=== PATIENT | female | born 1990 | race Two or more races ===

== ENCOUNTER 2016-04-28 20:14 | Emergency (ER) | payer SELFPAY ==
--- NOTE | 2016-04-28 20:41 | PDOC ---
Rapid Medical Evaluation Chief Complaint: Pain Time Seen by Provider: 04/28/16 20:35 Medical Evaluation: Allergies Allergy/AdvReac Type Severity Reaction Status Date / Time No Known Allergies Allergy Verified 05/28/14 10:41 04/28/16 20:38 25 yo F c/o vaginal rash but tx with ? med by medical assistant ob gyn [email or web address] ago. Finished course then had menses( finished x1 week ago). NOw, c/o burn upon urination, freq/ urgency without fever/chills LMP: x1 week ago
[2016-04-28 20:42] VITALS: BP 127/84; PULSE 110; TEMP 98.2; BMI 26.9
[2016-04-28 21:29] LABS: URINE APPEARANCE CLEAR; URINE BILIRUBIN NEGATIVE (NEGATIVE); URINE BLOOD NEGATIVE (NEGATIVE); URINE COLOR LTYELLOW; URINE GLUCOSE (UA) NEGATIVE (NEGATIVE); URINE KETONE NEGATIVE (NEGATIVE); URINE NITRITE NEGATIVE (NEGATIVE); URINE PROTEIN NEGATIVE (NEGATIVE); URINE UROBILINOGEN NEGATIVE E.U./dl (0.2-1.0)
[2016-04-28 21:37] LABS: URINE LEUK ESTERASE 3+ (NEGATIVE)
[2016-04-28 22:20] LABS: URINE HYALINE CAST 1 /lpf; URINE MUCUS RARE; URINE RBC 6 /hpf (0-3); URINE WBC 29 /hpf (3-5)
[2016-04-28] MEDS ORDERED: AZITHROMYCIN 1 GM PACKET PO ONE (22:29)
--- NOTE | 2016-04-28 22:30 | PDOC ---
History of Present Illness - General Chief Complaint: Pain Stated Complaint: PAIN Time Seen by Provider: 04/28/16 20:35 History Source: Patient Exam Limitations: No Limitations - History of Present Illness Initial Comments: 04/28/16 22:30 CHIEF COMPLAINT: Vaginal discharge HISTORY OF PRESENT ILLNESS: This is a 25 year old female with a reported history of frequent "vaginal infections", recently completed a course of "pills " for an unknown problem prescribed by a evp general counsel whose name she cannot remember. She reports one week of copius vaginal discharge and itching, as well as burning on urination. She denies fevers/chills, pelvic pain, and nausea/ vomiting. Vital signs on arrival are notable for P 110. REVIEW OF SYSTEMS: GENERAL/CONSTITUTIONAL: No fever or chills. No weakness. No weight change. HEAD, EYES, EARS, NOSE AND THROAT: No change in vision. No ear pain or discharge. No sore throat. CARDIOVASCULAR: No chest pain or palpitations. RESPIRATORY: No cough, wheezing, or shortness of breath. GASTROINTESTINAL: No nausea, vomiting, diarrhea or constipation. GENITOURINARY: See HPI. MUSCULOSKELETAL: No joint or muscle swelling or pain. No neck or back pain. SKIN: No rash or easy bruising. NEUROLOGIC: No headache, vertigo, loss of consciousness, or loss of sensation. PSYCHIATRIC: No depression or anxiety. ENDOCRINE: No increased thirst. No abnormal weight change. HEMATOLOGIC/LYMPHATIC: No anemia, easy bleeding, or history of blood clots. ALLERGIC/IMMUNOLOGIC: No hives or skin allergy. No latex allergy. PHYSICAL EXAM: GENERAL: The patient is awake, alert, and fully oriented, in no acute distress. ENT: Pupils equal, round and reactive to light, extraocular movements intact, sclera anicteric, conjunctiva clear. Neck supple. LUNGS: Clear to auscultation bilaterally. Normal excursion. No respiratory distress or use of accessory muscles. CV: RRR, S1/S2, no MRG. Cap refill < 2 sec. ABDOMEN: Soft, non-distended, non-tender. EXTREMITIES: Normal range of motion, no edema. NEUROLOGICAL: Normal speech, normal gait. CN II-XII grossly intact. PSYCH: Normal mood, normal affect. SKIN: Warm, dry, normal turgor, no rashes or lesions noted. PELVIC: Normal external exam. Thick, yellow, vaginal discharge. +CMT and bilateral adnexal tenderness. Past History - Past Medical History Allergies/Adverse Reactions: Allergies Allergy/AdvReac Type Severity Reaction Status Date / Time No Known Allergies Allergy Verified 05/28/14 10:41 Home Medications: Ambulatory Orders Levofloxacin [Levaquin -] 500 mg PO DAILY #10 tablet 05/28/14 Prednisone [Deltasone -] 20 mg PO DAILY #18 tablet 05/28/14 Cephalexin [Keflex] 500 mg PO Q6H #20 capsule 04/28/16 Anemia: Yes Asthma: No Cancer: No Cardiac Disorders: No CVA: No COPD: No CHF: No Dementia: No Diabetes: No GI Disorders: No Disorders: No HTN: No Hypercholesterolemia: No Liver Disease: No Seizures: No Thyroid Disease: No - Immunization History Immunization Up to Date: Yes - Psycho/Social/Smoking Cessation Hx Anxiety: No Suicidal Ideation: No Smoking History: Never smoked Have you smoked in the past 12 months: No Hx Alcohol Use: Yes (OCCASIONALLY) Drug/Substance Use Hx: No Substance Use Type: Alcohol *Physical Exam - Vital Signs Last Vital Signs Temp Pulse Resp BP Pulse Ox 98.2 F 110 H 18 127/84 100 04/28/16 20:38 04/28/16 20:38 04/28/16 20:38 04/28/16 20:38 04/28/16 20:38 ED Treatment Course - ADDITIONAL ORDERS Additional order review: Laboratory Results 04/28/16 21:15 Urine Color Ltyellow Urine Appearance Clear Urine pH 6.0 Ur Specific [place] 1.024 Urine Protein Negative Urine Glucose (UA) Negative Urine Ketones Negative Urine Blood Negative Urine Nitrite Negative Urine Bilirubin Negative Urine Urobilinogen Negative Ur Leukocyte Esterase 3+ H D Urine RBC 6 Urine WBC 29 Ur Epithelial Cells Rare Hyaline Casts 1 Urine Mucus Rare Urine HCG, Qual Negative Medical Decision Making - Medical Decision Making 04/28/16 22:59 A/P: 25 year old female with vaginal discharge, CMT, and bilateral adnexal tenderness suspicious for PID. No fevers or systemic symptoms; well-appearing. -Ceftriaxone 250mg IM x 1, Azithromycin 1g PO -Cultures sent -UA with 29 WBCs; will also treat with Keflex for UTI -Stem Lead Former followup advised -Return precautions reviewed Repeat HR is 89. 04/28/16 23:14 *DC/Admit/Observation/Transfer Diagnosis at time of Disposition: PID (acute pelvic inflammatory disease) - Discharge Dispostion Disposition: HOME Condition at time of disposition: Stable Admit: No - Prescriptions Prescriptions: Cephalexin [Keflex] 500 mg PO Q6H #20 capsule - Referrals Referrals: Jayy Amador MD [Primary Care Provider] - - Patient Instructions Printed Discharge Instructions: DI for Pelvic Inflammatory Disease Additional Instructions: -You are being treated for vaginal infection with a one-time dose of antibiotics -Please also continue antibiotics as prescribed for urinary tract infection -You can call the enclosed number for your culture results in 2-3 days -Please follow up with our [facility] at [address] [place] [address] ([phone]) in 2-3 days -Return here for fever (temperature over 100.4), worsening pelvic pain, or any other concerning symptoms Print Language: FRENCH
[2016-04-28] MEDS ORDERED: IBUPROFEN 600 MG TABLET (FP) PO ONE ×2 (22:31→22:42)
[2016-04-28] MEDS ORDERED: AZITHROMYCIN 1 GM PACKET ONE (22:31)
[2016-04-28] MEDS ORDERED: LIDOCAINE HCL/PF 1% SDV 5ML VIAL ONE (22:32)
[2016-04-28] MEDS ORDERED: LIDOCAINE HCL 1%, 10 MG/ML (20ML VIAL) ONE (22:33)
--- NOTE | 2016-05-02 17:46 | PDOC ---
Patient Follow-up (Call Back) - Post ED Follow - Up Condition at time of discharge: Stable Disposition at time of original discharge: HOME Reason for Call Back: Abnwl. Microbiology Signs/Symptoms Improved: Yes - Disposition Additional Instructions/Notes: pt' s genital culture + for gardinella vaginosis pt. 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
== END 2016-04-28 23:08 | disposition home or self-care (01) ==
LOC: JERFT 20:14
DX: N73.8 Other specified female pelvic inflammatory diseases (principal)
CPT/HCPCS: 36415; 81003; 81015; 84703; 87070; 87086; 87186; 87205; 87491; 87591; 99281-25

== ENCOUNTER 2016-06-15 12:56 | Emergency (ER) | payer OTHER ==
[2016-06-15 13:02] VITALS: BP 111/75; PULSE 78; TEMP 97.8; BMI 26.9
[2016-06-15] MEDS ORDERED: DIPHTH,PERTUSS(ACELL),TET 0.5 ML DISP.SYRIN IM ONE (14:20)
--- NOTE | 2016-06-15 15:13 | PDOC ---
History of Present Illness - General Chief Complaint: Injury Stated Complaint: LT ARM LACERATION, (GLASS) Time Seen by Provider: 06/15/16 13:14 - History of Present Illness Initial Comments: 06/15/16 15:28 Pt is a 26 y/o female with no significant PMH who presents to [facility] with a laceration of her left fore arm. Pt. states she was cleaning a high shelf when a piece of glass fell off of the shelf and landed on her arm and cut her. She does not remember the date of her last tetanus shot. Denies falling, numbness or tingling, weakness of the affected hand. Past History - Past Medical History Allergies/Adverse Reactions: Allergies Allergy/AdvReac Type Severity Reaction Status Date / Time No Known Allergies Allergy Verified 06/15/16 13:02 Home Medications: Ambulatory Orders Levofloxacin [Levaquin -] 500 mg PO DAILY #10 tablet 05/28/14 Prednisone [Deltasone -] 20 mg PO DAILY #18 tablet 05/28/14 Cephalexin [Keflex] 500 mg PO Q6H #20 capsule 04/28/16 Metronidazole 0.75% Vag. Gel [Metrogel 0.75% *Vaginal Gel* -] 1 applic VG BID # 1 tube 05/02/16 Anemia: Yes Asthma: No Cancer: No Cardiac Disorders: No CVA: No COPD: No CHF: No Dementia: No Diabetes: No GI Disorders: No Disorders: No HTN: No Hypercholesterolemia: No Liver Disease: No Seizures: No Thyroid Disease: No - Immunization History Immunization Up to Date: Yes - Psycho/Social/Smoking Cessation Hx Anxiety: No Suicidal Ideation: No Smoking History: Never smoked Have you smoked in the past 12 months: No Number of Cigarettes Smoked Daily: 3 Information on smoking cessation initiated: No Hx Alcohol Use: Yes (OCCASIONALLY) Drug/Substance Use Hx: No Substance Use Type: Alcohol *Physical Exam - Vital Signs Last Vital Signs Temp Pulse Resp BP Pulse Ox 97.8 F 78 18 111/75 100 06/15/16 12:59 06/15/16 12:59 06/15/16 12:59 06/15/16 12:59 06/15/16 12:59 - Physical Exam Comments: 06/15/16 15:32 General: NAD. AAOx3 Extremity: Non-contaminated ,4 cm elliptical laceration on the L forearm. Two 0.5 cm lacerations just distal to the 4cm laceration. radial pulses 2+ b/l, sensation and motor function grossly intact. Procedures - Laceration/Wound Repair Left Arm Wound Length: 2.6 to 5.0 cm Wound Explored: clean, no foreign body present Wound's Depth, Shape: superficial, irregular Irrigated w/ Saline: Yes Betadine Prep: Yes Anesthesia: 1% Lidocaine Amount of Anesthetic (ccs): 2 Wound Debrided: minimal Wound Repaired With: Sutures, Dermabond Suture Size/Type: 4:0, proline Number of Sutures: 5 (simple interrupted ) Layer Closure: No Medical Decision Making - Medical Decision Making 06/15/16 15:15 Clean 4cm elliptical laceration of the L forearm. 5 simple interrupted sutures placed with 4-0 proline. Dermabond used for two 0.5 cm cuts distal to the elliptical laceration. Pt vasovagaled during the procedure, but felt better after lying down and drinking apple juice. Pt. to be discharged home with instruction to follow up in 7-10 days to have her sutures removed. *DC/Admit/Observation/Transfer Diagnosis at time of Disposition: Laceration - Discharge Dispostion Admit: No - Referrals Referrals: Jayy Amador MD [Primary Care Provider] - - Patient Instructions Printed Discharge Instructions: DI for Suture Removal Additional Instructions: Keep wound clean and dry. Cover the area before showering and do not soak the area for one week. Put antibiotic ointment over the affected area. Return in 7- 10 days to have the sutures removed. Print Language: KHMER - Post Discharge Activity Work/School Note: Back to Work
== END 2016-06-15 15:33 | disposition home or self-care (01) ==
LOC: JERFT 12:56
PROC: 0HQEXZZ Repair Left Lower Arm Skin, External Approach (ICD-10-PCS; principal; 2016-06-15)
DX: S51.812A Laceration without foreign body of left forearm, initial encounter (principal); W25.XXXA Contact with sharp glass, initial encounter; Y93.E9 Activity, other interior property and clothing maintenance; Y92.038 Other place in apartment as the place of occurrence of the external cause
CPT/HCPCS: 90715; 99281-25

== ENCOUNTER 2016-06-22 11:27 | Emergency (ER) | payer OTHER ==
[2016-06-22 11:31] VITALS: BP 111/71; PULSE 83; TEMP 98; BMI 26.9
--- NOTE | 2016-06-22 12:04 | PDOC ---
Suture Removal/Wound Check HPI - History of Present Illness Chief Complaint: Suture/Staple Removal(Here) Stated Complaint: STAPLE/SUTURE REMOVAL Time Seen by Provider: 06/22/16 11:46 History Source: Yes: Patient Exam Limitations: Yes: No Limitations Treated at: [facility] ED Date of Last ED visit: 06/15/16 - Previous ED Treatment Type of procedure performed on last visit: Yes: Laceration Repair Tetanus Immunization: Yes: Up to Date Antibiotics Prescribed: No - Onset of Previous Treatment Date of Occurence: 06/15/16 Past History - Past Medical History Allergies/Adverse Reactions: Allergies No Known Allergies Allergy (Verified 06/22/16 11:32) Home Medications: Ambulatory Orders Levofloxacin [Levaquin -] 500 mg PO DAILY #10 tablet 05/28/14 Prednisone [Deltasone -] 20 mg PO DAILY #18 tablet 05/28/14 Cephalexin [Keflex] 500 mg PO Q6H #20 capsule 04/28/16 Metronidazole 0.75% Vag. Gel [Metrogel 0.75% *Vaginal Gel* -] 1 applic VG BID # 1 tube 05/02/16 General: Yes: no pertinent history - Immunization History Immunizations Up to Date: Yes - Social History Smoking Status: Never smoked Number of Ciarettes Per Day: 3 Suture Removal/Wound Check PE - Physical Exam Laceration/Wound Check Symptoms: reports: None Current Severity Level: None Maximum Severity Level: None Pain Localization: None Location of Laceration/Wound: left: Arm (dorsal forearm) Comments: 06/22/16 12:07 laceration left forearm [address] with scabbing and mild erythema surrounding area Pain Radiation: None *Review of Systems - Review of Systems Able to Perform ROS?: Yes Constitutional: No: Symptoms Reported HEENTM: No: Symptoms Reported Respiratory: No: Symptoms reported Cardiac (ROS): No: Symptoms Reported ABD/GI: No: Symptoms Reported : No: Symptoms Reported Musculoskeletal: No: Symptoms Reported Integumentary: Yes: Other (left forearm [address] with scabbing of suture line and slight erythema) Procedures - Consent Consent obtained: From Patient - Additional Procedures Progress: 06/22/16 12:10 cleansed skin with betadine then NS 0.9 % left forearm around suture line than removed 5 interrupted sutures with no complication than bacitracin ointment and bandaid, wound edges well approximated, mild erythema along edges with scabbing Medical Decision Making - Medical Decision Making 06/22/16 12:13 Patient sutured here on 06/15/2016 left forearm 5 interrupted sutures patient here for suture removal today. Patient reports that tetanus was given at last visit and she is up-to-date. Patient has only been applying bacitracin to wound has not been cleaning with antibacterial soap and water. She denies any tenderness of area. PLAN: suture removal left forearm *DC/Admit/Observation/Transfer Diagnosis at time of Disposition: Visit for suture removal - Discharge Dispostion Disposition: HOME Condition at time of disposition: Stable - Patient Instructions Additional Instructions: CLEANSED wound on left forearm with antibacterial soap and water pat dry and apply a tiny amount of bacitracin ointment and cover with bandage when out of the home let air out at night Return to emergency room only if any increased redness around wound edges or if there is any remaining suture material in area. Patient voiced understanding of discharge instructions and all questions were answered
[2016-06-22] MEDS ORDERED: BACITRACIN 30 GM TUBE TOPICAL OINTMENT ONE (12:06)
== END 2016-06-22 12:44 | disposition home or self-care (01) ==
LOC: JERFT 11:27
DX: Z48.02 Encounter for removal of sutures (principal)
CPT/HCPCS: 99281-25

== ENCOUNTER 2016-07-20 12:29 | Emergency (ER) | payer OTHER ==
[2016-07-20 13:04] VITALS: BMI 26.9
[2016-07-20 13:56] LABS: URINE APPEARANCE CLEAR; URINE BILIRUBIN NEGATIVE (NEGATIVE); URINE BLOOD NEGATIVE (NEGATIVE); URINE COLOR COLORLESS; URINE GLUCOSE (UA) NEGATIVE (NEGATIVE); URINE KETONE NEGATIVE (NEGATIVE); URINE LEUK ESTERASE NEGATIVE (NEGATIVE); URINE NITRITE NEGATIVE (NEGATIVE); URINE PROTEIN NEGATIVE (NEGATIVE); URINE UROBILINOGEN NEGATIVE E.U./dl (0.2-1.0)
[2016-07-20] MEDS ORDERED: SODIUM CHLORIDE 1,000 ML IV STA (14:05)
[2016-07-20] MEDS ORDERED: morphine CARPU-JECT 2 MG/1 ML DISP.SYRIN IVPUSH ONE (14:05)
--- NOTE | 2016-07-20 14:09 | PDOC ---
*Physical Exam - Vital Signs Last Vital Signs Temp Pulse Resp BP Pulse Ox 98.1 F 91 H 18 112/59 100 07/20/16 13:00 07/20/16 13:00 07/20/16 13:00 07/20/16 13:00 07/20/16 13:00 - Physical Exam Comments: 07/20/16 14:09 The patient was examined by [DANIKA Ricardo] under my direct supervision. I personally evaluated the patient. I concur with the above findings and the plan of care. ED Treatment Course - LABORATORY CBC & Chemistry Diagram: 07/20/16 14:09 07/20/16 14:09 - ADDITIONAL ORDERS Additional order review: Laboratory Results 07/20/16 13:48 Urine HCG, Qual Negative *DC/Admit/Observation/Transfer Diagnosis at time of Disposition: Ovarian cyst - Discharge Dispostion Disposition: HOME Condition at time of disposition: Improved - Referrals Referrals: Jayy Amador MD [Primary Care Provider] - - Patient Instructions Printed Discharge Instructions: DI for Ovarian Cyst Additional Instructions: Please take Motrin for discomfort and apply heating pad to the affected area. Please follow-up with your [employer] and return to ED if symptoms return or worsen. Print Language: GIBRALTARIAN
[2016-07-20] MEDS ORDERED: morphine CARPU-JECT 4 MG/1 ML DISP.SYRIN ONE (14:10)
[2016-07-20 14:14] LABS: BASOPHIL 0.4 % (0-2.0); EOSINOPHIL 4.5 % (0-4.5); MCHC 30.7 g/dl (32.0-36.0); MEAN CELL VOLUME 63.8 fl (80-96); MEAN PLT VOLUME 8.4 fl (7.5-11.1); NEUTROPHILS 74.1 % (42.8-82.8); PLATELET COUNT 306 K/MM3 (134-434); RDW 21.6 % (11.6-15.6); WHITE BLOOD COUNT 11.1 K/mm3 (4.0-10.0)
[2016-07-20 14:16] LABS: MCH 19.6 pg (25.7-33.7)
--- NOTE | 2016-07-20 14:27 | PDOC ---
History of Present Illness - General Chief Complaint: Pain, Acute Stated Complaint: PAIN Time Seen by Provider: 07/20/16 13:13 History Source: Patient Exam Limitations: No Limitations - History of Present Illness Travel History: No Initial Comments: 07/20/16 14:07 26-year-old female presents to the ED with complaints of lower abdominal cramping radiating to her back since yesterday. Patient has no complaints of vaginal discharge, fever, abdominal distention, diarrhea, history of kidney stones, GI disorders. Patient does state irregular menses normally lasting 70 days but denies history of fibroids or endometriosis. Patient states took Tylenol today with no effect so decided to come to the ER for further evaluation. Timing/Duration: reports: constant Quality: reports: moderate, cramping Abdominal Pain Onset Location: reports: suprapubic Pain Radiation: reports: back Activities at Onset: reports: none Aggravating Factors: improves with: None Alleviating Factors: improves with: None Past History - Past Medical History Allergies/Adverse Reactions: Allergies Allergy/AdvReac Type Severity Reaction Status Date / Time No Known Allergies Allergy Verified 07/20/16 13:04 Home Medications: Ambulatory Orders NK [No Known Home Medication] 07/20/16 Anemia: Yes Asthma: No Cancer: No Cardiac Disorders: No CVA: No COPD: No CHF: No Dementia: No Diabetes: No GI Disorders: No Disorders: No HTN: No Hypercholesterolemia: No Liver Disease: No Seizures: No Thyroid Disease: No - Reproductive History Is Patient Now?: No - Immunization History Immunization Up to Date: Yes - Psycho/Social/Smoking Cessation Hx Anxiety: No Suicidal Ideation: No Smoking History: Current every day smoker Have you smoked in the past 12 months: Yes Number of Cigarettes Smoked Daily: 3 Information on smoking cessation initiated: No Hx Alcohol Use: Yes (socially) Drug/Substance Use Hx: No Substance Use Type: Alcohol Patient Lives Alone: No Lives with/in: spouse/SO Review of Systems - Review of Systems Constitutional: No: Symptoms Reported HEENTM: No: Symptoms Reported Respiratory: No: Symptoms reported Cardiac (ROS): No: Symptoms Reported ABD/GI: Yes: Abdominal cramping. No: Nausea : No: Symptoms Reported Musculoskeletal: Yes: Back Pain (low) Integumentary: No: Symptoms Reported Neurological: No: Symptoms reported Endocrine: No: Symptoms Reported Hematologic/Lymphatic: No: Symptoms Reported *Physical Exam - Vital Signs Last Vital Signs Temp Pulse Resp BP Pulse Ox 98.1 F 91 H 18 112/59 100 07/20/16 13:00 07/20/16 13:00 07/20/16 13:00 07/20/16 13:00 07/20/16 13:00 - Physical Exam General Appearance: Yes: Nourished, Appropriately Dressed. No: Apparent Distress HEENT: positive: EOMI, GUALBERTO Neck: positive: Supple Respiratory/Chest: positive: Lungs Clear, Normal Breath Sounds. negative: Respiratory Distress, Accessory Muscle Use Cardiovascular: positive: Regular Rhythm, Regular Rate. negative: Murmur Female Pelvic Exam: positive: normal external exam. negative: discharge, vaginal bleeding Gastrointestinal/Abdominal: positive: Normal Bowel Sounds, Soft, Tenderness ( suprapubic). negative: Distended, Guarding, Rebound, Mass Musculoskeletal: positive: CVA Tenderness (R) (mild), CVA Tenderness (L) (mild) Integumentary: positive: Normal Color, Warm Neurologic: positive: Motor Strength 5/5 (ambulatory) ED Treatment Course - LABORATORY CBC & Chemistry Diagram: 07/20/16 14:09 07/20/16 14:09 - ADDITIONAL ORDERS Additional order review: Laboratory Results 07/20/16 13:48 Urine HCG, Qual Negative - RADIOLOGY Radiology Studies Ordered: Category Date Time Status PELVIC / BLADDER US [US] Stat Ultrasound 07/20/16 14:05 Ordered TRANSVAGINAL ULTRASOUND US [US] Stat Ultrasound 07/20/16 14:05 Ordered Medical Decision Making - Medical Decision Making 07/20/16 14:32 Patient with lower abdominal pain radiating to her back since yesterday. Patient Had tenderness to the mid suprapubic region along with her lower back. Patient ordered for urine, urine , CBC, comp, morphine, IV fluids and ultrasound. 07/20/16 16:13 Laboratory Tests 07/20/16 07/20/16 07/20/16 13:48 14:09 14:09 WBC 11.1 H Hgb 10.5 L D Hct 34.1 Plt Count 306 Sodium 141 Potassium 3.9 Chloride 105 Carbon Dioxide 30 Anion Gap 6 L BUN 10 Creatinine 0.7 Random Glucose 85 Total Bilirubin 0.4 AST 17 D Albumin 3.9 Urine Ketones Negative Urine Nitrite Negative Urine HCG, Qual Negative Ultrasound shows no evidence of adnexal masses with right ovarian cyst measuring 1.2 cm and free fluid identified within the cul-de-sac. Patient will be discharged home to follow-up with her [employer]. *DC/Admit/Observation/Transfer Diagnosis at time of Disposition: Cyst of ovary - Discharge Dispostion Disposition: HOME Condition at time of disposition: Improved - Referrals Referrals: Jayy Amador MD [Primary Care Provider] - - Patient Instructions Printed Discharge Instructions: DI for Ovarian Cyst Additional Instructions: Please take Motrin for discomfort and apply heating pad to the affected area. 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
[2016-07-20 15:23] LABS: ALBUMIN 3.9 g/dl (3.4-5.0); ANION GAP 6 (8-16); BILIRUBIN,TOTAL 0.4 mg/dL (0.2-1.0); CALCIUM 9.1 mg/dL (8.5-10.1); CO2 30 mmol/L (21-32); CREATININE 0.7 mg/dL (0.55-1.02); GLUCOSE,RANDOM 85 mg/dL (74-106); SGOT/AST 17 U/L (15-37); SGPT/ALT 18 U/L (12-78); TOT PROT 7.3 g/dl (6.4-8.2)
[2016-07-20 15:24] LABS: ALK PHOS 76 U/L (45-117)
[2016-07-20] MEDS ORDERED: IBUPROFEN 600 MG TABLET (FP) PO ONE ×2 (16:14→16:22)
[2016-07-20 16:40] VITALS: BP 105/58; PULSE 86; TEMP 98
[2016-07-20 19:54] LABS: ANISOCYTOSIS 2+; HYPOCHROMIA 3+; MICROCYTOSIS 2+; OVALOCYTES 1+
== END 2016-07-20 17:59 | disposition home or self-care (01) ==
LOC: JER 12:29
PROC: 3E0337Z Introduction of Electrolytic and Water Balance Substance into Peripheral Vein, Percutaneous Approach (ICD-10-PCS; principal; 2016-07-20)
DX: N83.292 Other ovarian cyst, left side (principal); N83.291 Other ovarian cyst, right side; Z87.442 Personal history of urinary calculi; F17.210 Nicotine dependence, cigarettes, uncomplicated
CPT/HCPCS: 36415; 76830-TC; 76856-TC; 80053; 81003; 84703; 85025; 99283-25

== ENCOUNTER 2016-07-21 14:06 | Emergency (ER) | payer OTHER ==
[2016-07-21 14:12] VITALS: BMI 26.9
[2016-07-21] MEDS ORDERED: OXYCODONE/APAP 5/325MG COMBO TABLET PO ONE ×2 (15:38→20:08)
[2016-07-21 15:47] LABS: URINE APPEARANCE CLEAR; URINE BILIRUBIN NEGATIVE (NEGATIVE); URINE BLOOD NEGATIVE (NEGATIVE); URINE COLOR STRAW; URINE GLUCOSE (UA) NEGATIVE (NEGATIVE); URINE KETONE NEGATIVE (NEGATIVE); URINE NITRITE NEGATIVE (NEGATIVE); URINE PROTEIN NEGATIVE (NEGATIVE); URINE UROBILINOGEN NEGATIVE E.U./dl (0.2-1.0)
[2016-07-21] MEDS ORDERED: OXYCODONE/APAP 5/325MG COMBO TABLET ONE ×2 (15:47→20:11)
[2016-07-21 15:53] LABS: BASOPHIL 0.3 % (0-2.0); EOSINOPHIL 3.2 % (0-4.5); MEAN CELL VOLUME 63.7 fl (80-96); MEAN PLT VOLUME 9.6 fl (7.5-11.1); NEUTROPHILS 76.6 % (42.8-82.8); PLATELET COUNT 326 K/MM3 (134-434); RDW 21.4 % (11.6-15.6); WHITE BLOOD COUNT 12.9 K/mm3 (4.0-10.0)
[2016-07-21 16:01] LABS: URINE LEUK ESTERASE 1+ (NEGATIVE)
[2016-07-21 16:11] LABS: ALBUMIN 3.9 g/dl (3.4-5.0); ALK PHOS 90 U/L (45-117); ANION GAP 11 (8-16); BILIRUBIN,TOTAL 0.5 mg/dL (0.2-1.0); CALCIUM 8.9 mg/dL (8.5-10.1); CO2 27 mmol/L (21-32); CREATININE 0.7 mg/dL (0.55-1.02); GLUCOSE,RANDOM 98 mg/dL (74-106); SGOT/AST 16 U/L (15-37); SGPT/ALT 17 U/L (12-78); TOT PROT 7.5 g/dl (6.4-8.2)
[2016-07-21 16:22] LABS: MCH 19.7 pg (25.7-33.7)
--- NOTE | 2016-07-21 16:33 | PDOC ---
History of Present Illness - History of Present Illness Initial Comments: 07/21/16 16:33 The patient is a 26 year old female, with a significant past medical history of kidney stones, who presents to the emergency department for revisit s/p discharge from ED yesterday for persistent low abdominal pain radiating to her back for 6 days. The patient states she was discharged yesterday with direction to take Motrin for pain, however, she denies any relief from the motrin since her discharge. She also states she feels dizzy when her pain is at the height of severity. She denies chest pain, shortness of breath, headache. She denies fever, chills, nausea, vomit, diarrhea and constipation. She denies dysuria, frequency, urgency and hematuria. Allergies: NKDA Past surgical history: tubal ligation Social history: Denies toxic habits <Vita Aguilar - Last Filed: 07/21/16 18:31> <Zeny Hollins - Last Filed: 08/04/16 09:37> - General Chief Complaint: Pain Stated Complaint: ABD PAIN Time Seen by Provider: 07/21/16 14:33 Past History <Vita Aguilar - Last Filed: 07/21/16 18:31> - Past Medical History Anemia: Yes Asthma: No Cancer: No Cardiac Disorders: No CVA: No COPD: No CHF: No Dementia: No Diabetes: No GI Disorders: No Disorders: No HTN: No Hypercholesterolemia: No Liver Disease: No Seizures: No Thyroid Disease: No - Immunization History Immunization Up to Date: Yes - Psycho/Social/Smoking Cessation Hx Anxiety: No Suicidal Ideation: No Smoking History: Current every day smoker Have you smoked in the past 12 months: Yes Number of Cigarettes Smoked Daily: 3 Information on smoking cessation initiated: No Hx Alcohol Use: Yes (SOCIAL) Drug/Substance Use Hx: No Substance Use Type: None <Zeny Hollins - Last Filed: 08/04/16 09:37> - Past Medical History Allergies/Adverse Reactions: Allergies Allergy/AdvReac Type Severity Reaction Status Date / Time No Known Allergies Allergy Verified 07/21/16 14:12 Home Medications: Ambulatory Orders Ibuprofen 800 mg PO TID #30 tablet 07/21/16 Oxycodone HCl/Acetaminophen [Percocet 5-325 mg Tablet] 1 - 2 tab PO Q6H #20 tablet MDD 4 07/21/16 Review of Systems - Review of Systems Able to Perform ROS?: Yes Comments:: 07/21/16 16:33 GENERAL/CONSTITUTIONAL: No fever or chills. No weakness. HEAD, EYES, EARS, NOSE AND THROAT: No change in vision. No ear pain or discharge. No sore throat. CARDIOVASCULAR: No chest pain or shortness of breath. RESPIRATORY: No cough, wheezing, or hemoptysis. GASTROINTESTINAL: (+) suprapubic abominal pain radiating to her back. No nausea , vomiting, diarrhea or constipation. GENITOURINARY: No dysuria, frequency, or change in urination. MUSCULOSKELETAL: No joint or muscle swelling or pain. No neck or back pain. SKIN: No rash NEUROLOGIC: No headache, vertigo, loss of consciousness, or change in strength/ sensation. ENDOCRINE: No increased thirst. No abnormal weight change. HEMATOLOGIC/LYMPHATIC: No anemia, easy bleeding, or history of blood clots. ALLERGIC/IMMUNOLOGIC: No hives or skin allergy. <Vita Aguilar - Last Filed: 07/21/16 18:31> *Physical Exam - Vital Signs Last Vital Signs Temp Pulse Resp BP Pulse Ox 98.2 F 97 H 20 106/64 100 07/21/16 14:08 07/21/16 14:08 07/21/16 14:08 07/21/16 14:08 07/21/16 14:08 - Physical Exam Comments: 07/21/16 16:35 GENERAL: Awake, alert, and fully oriented, in no acute distress HEAD: No signs of trauma EYES: PERRLA, EOMI, sclera anicteric, conjunctiva clear ENT: Auricles normal inspection, hearing grossly normal, nares patent, oropharynx clear without exudates. Moist mucosa NECK: Normal ROM, supple, no lymphadenopathy, JVD, or masses LUNGS: Breath sounds equal, clear to auscultation bilaterally. No wheezes, and no crackles HEART: Regular rate and rhythm, normal S1 and S2, no murmurs, rubs or gallops ABDOMEN: (+) mild suprapubic tenderness. Soft, normoactive bowel sounds. No guarding, no rebound. No masses EXTREMITIES: Normal range of motion, no edema. No clubbing or cyanosis. No cords, erythema, or tenderness NEUROLOGICAL: Normal speech, normal gait SKIN: Warm, Dry, normal turgor, no rashes or lesions noted. <Vtia Aguilar - Last Filed: 07/21/16 18:31> - Vital Signs Last Vital Signs Temp Pulse Resp BP Pulse Ox 98.2 F 97 H 20 106/64 100 07/21/16 14:08 07/21/16 14:08 07/21/16 14:08 07/21/16 14:08 07/21/16 14:08 <Zeny Hollins - Last Filed: 08/04/16 09:37> ED Treatment Course - LABORATORY CBC & Chemistry Diagram: 07/21/16 15:28 07/21/16 15:28 - ADDITIONAL ORDERS Additional order review: Laboratory Results 07/21/16 07/21/16 15:28 15:20 Sodium 140 Potassium 3.9 Chloride 102 Carbon Dioxide 27 Anion Gap 11 BUN 10 Creatinine 0.7 Creat Clearance w eGFR > 60 Random Glucose 98 Calcium 8.9 Total Bilirubin 0.5 D AST 16 ALT 17 Alkaline Phosphatase 90 Total Protein 7.5 Albumin 3.9 Urine Color Straw Urine Appearance Clear Urine pH 5.0 Urine Protein Negative Urine Glucose (UA) Negative Urine Ketones Negative Urine Blood Negative Urine Nitrite Negative Urine Bilirubin Negative Urine Urobilinogen Negative Ur Leukocyte Esterase 1+ H Urine HCG, Qual Negative 07/21/16 15:28 RBC 5.19 MCV 63.7 L MCHC 31.0 L RDW 21.4 H MPV 9.6 D Neutrophils % 76.6 Lymphocytes % 13.5 Monocytes % 6.4 Eosinophils % 3.2 Basophils % 0.3 - Medications Given in the ED: ED Medications Discontinued Medications Generic Name Dose Route Start Last Admin Trade Name Yonatanq PRN Reason Stop Dose Admin Oxycodone/Acetaminophen 1 combo 07/21/16 15:38 07/21/16 15:50 Percocet 5/325 - PO 07/21/16 15:39 1 combo ONCE ONE Administration <Vita Aguilar - Last Filed: 07/21/16 18:31> - LABORATORY CBC & Chemistry Diagram: 07/21/16 15:28 07/21/16 15:28 - ADDITIONAL ORDERS Additional order review: Laboratory Results 07/21/16 07/21/16 15:28 15:20 Sodium 140 Potassium 3.9 Chloride 102 Carbon Dioxide 27 Anion Gap 11 BUN 10 Creatinine 0.7 Creat Clearance w eGFR > 60 Random Glucose 98 Calcium 8.9 Total Bilirubin 0.5 D AST 16 ALT 17 Alkaline Phosphatase 90 Total Protein 7.5 Albumin 3.9 Urine Color Straw Urine Appearance Clear Urine pH 5.0 Urine Protein Negative Urine Glucose (UA) Negative Urine Ketones Negative Urine Blood Negative Urine Nitrite Negative Urine Bilirubin Negative Urine Urobilinogen Negative Ur Leukocyte Esterase 1+ H Urine HCG, Qual Negative 07/21/16 15:28 RBC 5.19 MCV 63.7 L MCHC 31.0 L RDW 21.4 H MPV 9.6 D Neutrophils % 76.6 Lymphocytes % 13.5 Monocytes % 6.4 Eosinophils % 3.2 Basophils % 0.3 - Medications Given in the ED: ED Medications Discontinued Medications Generic Name Dose Route Start Last Admin Trade Name Freq PRN Reason Stop Dose Admin Oxycodone/Acetaminophen 1 combo 07/21/16 15:38 07/21/16 15:50 Percocet 5/325 - PO 07/21/16 15:39 1 combo ONCE ONE Administration <Zeny Hollins - Last Filed: 08/04/16 09:37> Medical Decision Making - Medical Decision Making 07/21/16 16:28 26 yo F with h/o recently diagnosed hemorrhagic or ruptured ovarian cyst day prior, seen in ed yesterday, here with persistant pain lower abd. has been taking motrin 600 mg, no relief. no n/v. also c/o low back pain. no f/c no vaginal discharge. not lightheaded. no fc no other complaints. on exam awake alert NAD lungs clear, heart RRR no mr/b abd soft lower abd ttp. no rebound no guarding. plan: rpt cbc r/o worsening hemorrhagic cyst, ucg, repeat us evaluate amount of free fluid. pain control likely will require better pain control prior to dc. 07/21/16 17:23 bedside FAST performed. free fluid RLQ , no free fluid in morrisons pouch, pt now reporting fever, and nausea. will obtain CT r/o confounding causes for RLQ pain such as TOA or appendicits. 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 08/1408/04/16 09:36 <Zeny Hollins - Last Filed: 08/04/16 09:37> *DC/Admit/Observation/Transfer - Attestations Scribe Attestion: 07/21/16 16:37 Documentation prepared by Vita Aguilar, acting as medical records technician for Zeny Hollins MD, <Vita Aguilar - Last Filed: 07/21/16 18:31> - Discharge Dispostion Admit: No <Zeny Hollins - Last Filed: 08/04/16 09:37> Diagnosis at time of Disposition: Ovarian cyst - Discharge Dispostion Disposition: HOME Condition at time of disposition: Improved - Prescriptions Prescriptions: Ibuprofen 800 mg PO TID #30 tablet Oxycodone HCl/Acetaminophen [Percocet 5-325 mg Tablet] 1 - 2 tab PO Q6H #20 tablet MDD 4 - Referrals Referrals: Jayy Amador MD [Primary Care Provider] - - Patient Instructions Printed Discharge Instructions: DI for Ovarian Cyst Print Language: TAIWANESE
[2016-07-21] MEDS ORDERED: SODIUM CHLORIDE 1,000 ML IV STA (17:23)
[2016-07-21 20:20] LABS: ANISOCYTOSIS 2+; HYPOCHROMIA 2+; MICROCYTOSIS 2+; OVALOCYTES 1+; PLATELET ESTIMATE ADEQUATE (NORMAL); POIKILOCYTOSIS 1+; TEAR DROP CELLS FEW
--- NOTE | 2016-07-21 20:29 | PDOC ---
*Physical Exam - Vital Signs Last Vital Signs Temp Pulse Resp BP Pulse Ox 98.2 F 79 18 124/74 100 07/21/16 14:08 07/21/16 19:14 07/21/16 19:14 07/21/16 19:14 07/21/16 19:14 ED Treatment Course - LABORATORY CBC & Chemistry Diagram: 07/21/16 15:28 07/21/16 15:28 - ADDITIONAL ORDERS Additional order review: Laboratory Results 07/21/16 07/21/16 15:28 15:20 Sodium 140 Potassium 3.9 Chloride 102 Carbon Dioxide 27 Anion Gap 11 BUN 10 Creatinine 0.7 Creat Clearance w eGFR > 60 Random Glucose 98 Calcium 8.9 Total Bilirubin 0.5 D AST 16 ALT 17 Alkaline Phosphatase 90 Total Protein 7.5 Albumin 3.9 Urine Color Straw Urine Appearance Clear Urine pH 5.0 Ur Specific [place] 1.015 Urine Protein Negative Urine Glucose (UA) Negative Urine Ketones Negative Urine Blood Negative Urine Nitrite Negative Urine Bilirubin Negative Urine Urobilinogen Negative Ur Leukocyte Esterase 1+ H Urine RBC None Urine WBC None Urine HCG, Qual Negative 07/21/16 15:28 RBC 5.19 MCV 63.7 L MCHC 31.0 L RDW 21.4 H MPV 9.6 D Neutrophils % 76.6 Lymphocytes % 13.5 Monocytes % 6.4 Eosinophils % 3.2 Basophils % 0.3 - Medications Given in the ED: ED Medications Discontinued Medications Generic Name Dose Route Start Last Admin Trade Name Freq PRN Reason Stop Dose Admin Sodium Chloride 1,000 mls @ 1,000 mls/hr 07/21/16 17:23 07/21/16 17:41 Normal Saline - IV 07/21/16 18:22 1,000 mls/hr ASDIR STA Administration Oxycodone/Acetaminophen 1 combo 07/21/16 15:38 07/21/16 15:50 Percocet 5/325 - PO 07/21/16 15:39 1 combo ONCE ONE Administration Oxycodone/Acetaminophen 1 combo 07/21/16 20:08 07/21/16 20:13 Percocet 5/325 - PO 07/21/16 20:09 1 combo ONCE ONE Administration *DC/Admit/Observation/Transfer Diagnosis at time of Disposition: Ovarian cyst - Discharge Dispostion Disposition: HOME Condition at time of disposition: Stable Admit: No - Referrals Referrals: Jayy Amador MD [Primary Care Provider] - - Patient Instructions Printed Discharge Instructions: DI for Ovarian Cyst - Post Discharge Activity
[2016-07-21 20:42] VITALS: BP 129/78; PULSE 75; TEMP 98.7
== END 2016-07-21 20:43 | disposition home or self-care (01) ==
LOC: JER 14:06
PROC: 3E0337Z Introduction of Electrolytic and Water Balance Substance into Peripheral Vein, Percutaneous Approach (ICD-10-PCS; principal; 2016-07-21)
DX: N83.201 Unspecified ovarian cyst, right side (principal)
CPT/HCPCS: 36415; 74177-TC; 80053; 81003; 81015; 84703; 85025; 99282-25; Q9967

== ENCOUNTER 2017-01-12 10:21 | Emergency (ER) | payer OTHER ==
[2017-01-12 11:14] VITALS: TEMP 98.9; BMI 25.0
[2017-01-12] MEDS ORDERED: SODIUM CHLORIDE 0.9% 1000 ML INFUS.BAG IV ONE (11:31)
[2017-01-12] MEDS ORDERED: FAMOTIDINE 20 MG/50 ML IVPB 20 MG/50 ML MG IVPB ONE ×2 (11:31→12:03)
[2017-01-12] MEDS ORDERED: ONDANSETRON 4 MG/2 ML VIAL IVPUSH ONE (11:31)
--- NOTE | 2017-01-12 11:45 | PDOC ---
History of Present Illness - History of Present Illness Initial Comments: 01/12/17 11:47 The patient is a 26 year old mosotho speaking female, with a significant past medical history of gastric ulcers anemia, and heavy menses, who presents to the emergency department with blood in vomit and stool 1.5 weeks ago. Patient states she drank alcohol the day before she experienced these symptoms. The next day she vomited 3 times. She also reports feeling lightheaded intermittently, bloody stool, palpitations, nausea, and epigastric pain. She denies recent fevers, chills, headache or dizziness. She denies recent diarrhea or constipation. She denies recent dysuria, frequency, urgency or hematuria. She denies recent chest pain or shortness of breath. Allergies: NKA Past surgical history: None reported. Social history: occasional alcohol use. Primary Care Physician: Jayy Amador <Johanny Warren - Last Filed: 01/12/17 11:47> <Madina Vega - Last Filed: 01/12/17 14:14> - General Chief Complaint: Lightheaded Stated Complaint: DIZZINESS Time Seen by Provider: 01/12/17 10:51 Past History <Johanny Warren - Last Filed: 01/12/17 11:47> - Past Medical History Anemia: Yes (heavy period) Asthma: No Cancer: No Cardiac Disorders: No CVA: No COPD: No CHF: No DVT: No Dementia: No Diabetes: No GI Disorders: Yes (ulcers) Disorders: No HTN: No Hypercholesterolemia: No Liver Disease: No Seizures: No Thyroid Disease: No - Immunization History Immunization Up to Date: Yes - Suicide/Smoking/Psychosocial Hx Smoking History: Current every day smoker Have you smoked in the past 12 months: Yes Number of Cigarettes Smoked Daily: 10 Information on smoking cessation initiated: No Hx Alcohol Use: No Drug/Substance Use Hx: No Substance Use Type: None <Madina Vega - Last Filed: 01/12/17 14:14> - Past Medical History Allergies/Adverse Reactions: Allergies Allergy/AdvReac Type Severity Reaction Status Date / Time No Known Allergies Allergy Verified 01/12/17 10:40 Home Medications: Ambulatory Orders Pantoprazole Sodium [Protonix] 40 mg PO DAILY #14 tablet. 01/12/17 Review of Systems - Review of Systems Comments:: 01/12/17 11:47 GENERAL/CONSTITUTIONAL: No fever or chills. No weakness. HEAD, EYES, EARS, NOSE AND THROAT: No change in vision. No ear pain or discharge. No sore throat. GASTROINTESTINAL: +nausea, +vomiting (bloody),+ bloody stool, +epigastric pain , no diarrhea or constipation. GENITOURINARY: No dysuria, frequency, or change in urination. CARDIOVASCULAR: + palpitations. No chest pain or shortness of breath. RESPIRATORY: No cough, wheezing, or hemoptysis. MUSCULOSKELETAL: No joint or muscle swelling or pain. No neck or back pain. SKIN: No rash NEUROLOGIC: +lightheaded, No headache, loss of consciousness, or change in strength/sensation. ENDOCRINE: No increased thirst. No abnormal weight change. HEMATOLOGIC/LYMPHATIC: +anemia, no easy bleeding, or history of blood clots. ALLERGIC/IMMUNOLOGIC: No hives or skin allergy. <Johanny Warren - Last Filed: 01/12/17 11:47> *Physical Exam - Vital Signs Last Vital Signs Temp Pulse Resp BP Pulse Ox 98.9 F 73 18 115/74 100 01/12/17 10:25 01/12/17 10:25 01/12/17 10:25 01/12/17 10:25 01/12/17 10:25 - Physical Exam Comments: 01/12/17 11:47 GENERAL: Awake, alert, and fully oriented, in no acute distress HEAD: No signs of trauma EYES: PERRLA, EOMI, sclera anicteric, conjunctiva clear ENT: Auricles normal inspection, hearing grossly normal, nares patent, oropharynx clear without exudates. Moist mucosa NECK: Normal ROM, supple, no lymphadenopathy, JVD, or masses LUNGS: Breath sounds equal, clear to auscultation bilaterally. No wheezes, and no crackles HEART: Regular rate and rhythm, normal S1 and S2, no murmurs, rubs or gallops ABDOMEN: +Mild epigastric tenderness.Soft, normoactive bowel sounds. No guarding, no rebound. No masses EXTREMITIES: Normal range of motion, no edema. No clubbing or cyanosis. No cords, erythema, or tenderness NEUROLOGICAL: Cranial nerves II through XII grossly intact. Normal speech, normal gait SKIN: Warm, Dry, normal turgor, no rashes or lesions noted. Rectal Exam: light brown, no mass palpated, heme negative. <Johanny Warren - Last Filed: 01/12/17 11:47> - Vital Signs Last Vital Signs Temp Pulse Resp BP Pulse Ox 98.9 F 73 18 115/74 100 01/12/17 10:25 01/12/17 10:25 01/12/17 10:25 01/12/17 10:25 01/12/17 10:25 <Madina Vega - Last Filed: 01/12/17 14:14> Heart Score/ECG Review - ECG Intrepretation Comment:: 01/12/17 12:41 sinus a t78, nl axis, nl interval, no acute st/t wave findings <Madina Vega - Last Filed: 01/12/17 14:14> ED Treatment Course - LABORATORY CBC & Chemistry Diagram: 01/12/17 11:20 <Johanny Warren - Last Filed: 01/12/17 11:47> - LABORATORY CBC & Chemistry Diagram: 01/12/17 11:20 01/12/17 11:36 - RADIOLOGY Radiology Studies Ordered: Category Date Time Status CHEST X-RAY PORTABLE* [RAD] Stat Radiology 01/12/17 10:52 Ordered <Madina Vega - Last Filed: 01/12/17 14:14> Medical Decision Making - Medical Decision Making 01/12/17 14:05 a/p: 26yo female with lightheaded -1.5 weeks ago with vomiting blood after drinking -hx of gastritis -will start gi meds, labs, heme for stool was negative. will po challenge 01/12/17 14:07 pt tolerated po in the ed feeling better no abd pain. discussed labs, has been told to take iron in the past, microcytic anemia - not needing transfusion will start pt on ppi x 2 weeks. will need to see GI and follow up with Dr. Amador. <Madina Vega - Last Filed: 01/12/17 14:14> *DC/Admit/Observation/Transfer - Attestations Scribe Attestion: 01/12/17 11:50 Documentation prepared by Johanny Warren, acting as medical laboratory assistant for Madina Vega DO. <Johanny Warren - Last Filed: 01/12/17 11:47> - Discharge Dispostion Admit: No - Attestations Physician Attestion: 01/12/17 14:14 I, Dr. Madina Vega, DO, attest that this document has been prepared under my direction and personally reviewed by me in its entirety. I further attest, that it accurately reflects all work, treatment, procedures and medical decision -making performed by me. <Madina Vega - Last Filed: 01/12/17 14:14> Diagnosis at time of Disposition: Lightheaded, Microcytic anemia, Epigastric abdominal pain - Discharge Dispostion Disposition: HOME Condition at time of disposition: Stable - Prescriptions Prescriptions: Pantoprazole Sodium [Protonix] 40 mg PO DAILY #14 tablet.dr - Referrals Referrals: Jayy Amador MD [Primary Care Provider] - Markos Manzo MD [Staff Physician] - - Patient Instructions Printed Discharge Instructions: DI for Iron Deficiency Anemia-Adult, DI for Gastritis Additional Instructions: Please follow up with your PMD. Please make an appointment to follow up with the globe cleaner. Please take all meds as prescribed. Please return to the ED with any further complaints. Please take your iron tabs. - Post Discharge Activity
[2017-01-12 11:52] LABS: BASO % 0.9 % (0-2.0); EOS % 9.7 % (0-4.5); MCH 20.5 pg (25.7-33.7); MEAN CELL VOLUME 66.2 fl (80-96); MEAN PLT VOLUME 8.4 fl (7.5-11.1); NEUT % 51.8 % (42.8-82.8); PLATELET COUNT 304 K/MM3 (134-434); RDW 19.9 % (11.6-15.6); WHITE BLOOD COUNT 5.4 K/mm3 (4.0-10.0)
[2017-01-12] MEDS ORDERED: ONDANSETRON 4 MG/2 ML VIAL ONE (12:02)
[2017-01-12 12:14] LABS: ALK PHOS 59 U/L (45-117); ANION GAP 6 (8-16); BILIRUBIN,TOTAL 0.5 mg/dL (0.2-1.0); CALCIUM 8.8 mg/dL (8.5-10.1); CO2 28 mmol/L (21-32); CREATININE 0.7 mg/dL (0.55-1.02); GLUCOSE,RANDOM 87 mg/dL (74-106); MAGNESIUM 2.4 mg/dL (1.8-2.4); SGOT/AST 15 U/L (15-37); SGPT/ALT 20 U/L (12-78); TOT PROT 7.3 g/dl (6.4-8.2)
[2017-01-12 12:25] LABS: INR 1.03 (0.82-1.09); PROTHROMBIN TIME (PATIENT) 11.6 SEC (9.98-11.88)
[2017-01-12 12:28] LABS: ACTIVATED PTT 30.4 SECONDS (26.9-34.4)
[2017-01-12 14:38] LABS: ANISOCYTOSIS 2+; HYPOCHROMIA 2+; MICROCYTOSIS 1+; TARGET CELLS 2+
[2017-01-12 14:45] VITALS: BP 121/70; PULSE 70
--- NOTE | 2017-01-19 12:15 | EKG ---
Test Reason : Blood Pressure : / mmHG Vent. Rate : 078 BPM Atrial Rate : 078 BPM P-R Int : 180 ms QRS Dur : 090 ms QT Int : 374 ms P-R-T Axes : 032 054 027 degrees QTc Int : 426 ms SINUS RHYTHM WITH PREMATURE ATRIAL COMPLEXES WITH ABERRANT CONDUCTION OTHERWISE NORMAL ECG NO PREVIOUS ECGS AVAILABLE Confirmed by WAYNE CHOI MD ([id number]) on 01/19/2017 12:14:27 PM Referred By: Confirmed By:WAYNE CHOI MD
== END 2017-01-12 14:45 | disposition home or self-care (01) ==
LOC: JER 10:21
PROC: 3E0337Z Introduction of Electrolytic and Water Balance Substance into Peripheral Vein, Percutaneous Approach (ICD-10-PCS; principal; 2017-01-12)
PROC: 3E033GC Introduction of Other Therapeutic Substance into Peripheral Vein, Percutaneous Approach (ICD-10-PCS; 2017-01-12)
DX: R42 Dizziness and giddiness (principal); R10.13 Epigastric pain; D64.89 Other specified anemias
CPT/HCPCS: 36415; 71010-TC; 80053; 83605; 83735; 84703; 85025; 85610; 85730; 86850; 86900; 86901; 93005; 93010; 96365; 96375; 99284-25

== ENCOUNTER 2018-03-15 16:54 | Emergency (ER) | payer OTHER ==
[2018-03-15 17:11] VITALS: TEMP 98.6
[2018-03-15] MEDS ORDERED: ONDANSETRON 4 MG/2 ML VIAL IVPUSH ONE (17:11)
[2018-03-15] MEDS ORDERED: SODIUM CHLORIDE 1,000 ML IV STA ×2 (17:11→19:59)
[2018-03-15] MEDS ORDERED: FAMOTIDINE 20 MG/50 ML IVPB 20 MG/50 ML MG IVPB ONE ×2 (17:11→17:56)
--- NOTE | 2018-03-15 17:11 | PDOC ---
Rapid Medical Evaluation Chief Complaint: Weakness Time Seen by Provider: 03/15/18 17:07 Medical Evaluation: Allergies Allergy/AdvReac Type Severity Reaction Status Date / Time No Known Allergies Allergy Verified 06/10/17 20:26 I have performed a brief in-person evaluation of this patient. The patient presents with a chief complaint of: C/O NBNB emesis x 10 days along with burning epigastric pain; was sent by her psychiatrist; patient recently had loss of family member and psychiatrist was concerned about possible dehydration; patient is not suicidal or homicidal Pertinent physical exam findings: In NAD I have ordered the following: Labs, IVF, pepcid, zofran The patient will proceed to the ED for further evaluation. 03/15/18 17:09 Discharge Disposition - Discharge Dispostion Condition at time of disposition: Stable - Referrals Referrals: Jayy Amador MD [Primary Care Provider] - - Patient Instructions - Post Discharge Activity
[2018-03-15] MEDS ORDERED: ONDANSETRON 4 MG/2 ML VIAL ONE ×5 (17:56→20:01)
[2018-03-15 18:39] LABS: BASO % 1.4 % (0-2.0); EOS % 8.2 % (0-4.5); HEMATOCRIT 35.6 % (32.4-45.2); HEMOGLOBIN 11.1 GM/dL (10.7-15.3); LYMPH % 23.4 % (8-40); MCH 20.2 pg (25.7-33.7); MCHC 31.2 g/dl (32.0-36.0); MEAN CELL VOLUME 64.7 fl (80-96); MEAN PLT VOLUME 8.8 fl (7.5-11.1); MONO % 7.4 % (3.8-10.2); NEUT % 59.6 % (42.8-82.8); PLATELET COUNT 303 K/MM3 (134-434); RDW 20.3 % (11.6-15.6); WHITE BLOOD COUNT 7.9 K/mm3 (4.0-10.0)
[2018-03-15 19:07] LABS: ALBUMIN 4.3 g/dl (3.4-5.0); ALK PHOS 79 U/L (45-117); ANION GAP 8 MMOL/L (8-16); BILIRUBIN,TOTAL 0.7 mg/dL (0.2-1); BLOOD UREA NITROGEN 17 mg/dL (7-18); CALCIUM 9.4 mg/dL (8.5-10.1); CHLORIDE 105 mmol/L (98-107); CO2 26 mmol/L (21-32); CREATININE 0.8 mg/dL (0.55-1.3); GLUCOSE,RANDOM 76 mg/dL (74-106); LIPASE 107 U/L (73-393); POTASSIUM 4.1 mmol/L (3.5-5.1); SGOT/AST 15 U/L (15-37); SGPT/ALT 17 U/L (13-61); SODIUM 139 mmol/L (136-145); TOT PROT 7.9 g/dl (6.4-8.2)
[2018-03-15 19:43] LABS: ANISOCYTOSIS 2+; PLATELET ESTIMATE ADEQUATE
[2018-03-15 19:44] LABS: MACROCYTOSIS 1+
--- NOTE | 2018-03-15 20:05 | PDOC ---
History of Present Illness - General Chief Complaint: Vomiting/Diarrhea Stated Complaint: Weakness Time Seen by Provider: 03/15/18 17:07 History Source: Patient Exam Limitations: No Limitations - History of Present Illness Travel History: No Initial Comments: 03/15/18 20:01 HISTORY OF PRESENT ILLNESS: This a 27-year-old woman past medical history of depression, anxiety, GERD, gastritis who presents emergency department for evaluation of abdominal pain, nausea and vomiting for the past 5 days. Patient reports 5 days ago she was having diarrhea but is spontaneously resolved since that time. Of note patient reports having decreased oral intake after the of her brother on 03/05 of this year. Patient was seen and evaluated by her sr. social media & mobile manager earlier today and was referred to the emergency department for evaluation of dehydration. No recent travel or sick contacts. PAST MEDICAL HISTORY: see HPI SURGICAL HISTORY: Denies ALLERGIES: No known drug allergies REVIEW OF SYSTEMS General/Constitutional: Denies fever or chills. Denies weakness, weight change. HEENT: Denies change in vision. Denies ear pain or discharge. Denies sore throat. Cardiovascular: Denies chest pain or shortness of breath. Respiratory: Denies cough, wheezing, or hemoptysis. Gastrointestinal: see HPI Genitourinary: Denies dysuria, frequency, or change in urination. Musculoskeletal: Denies joint or muscle swelling or pain. Denies neck or back pain. Skin and breasts: Denies rash or easy bruising. Neurologic: Denies headache, vertigo, loss of consciousness, or loss of sensation. Psychiatric: Denies depression or anxiety. Endocrine: Denies increased thirst. Denies abnormal weight change. Hematologic/Lymphatic: Denies anemia, easy bleeding, or history of blood clots. Allergic/Immunologic: Denies hives or skin allergy. Denies latex allergy. PHYSICAL EXAM General Appearance: Well-appearing, appropriately dressed. No apparent distress , no intoxication. HEENT: EOMI, PERRLA, normal ENT inspection, normal voice, TMs normal, pharynx normal. No conjunctival pallor. No photophobia, scleral icterus. Neck: Supple. Trachea midline. No tenderness, rigidity, carotid bruit, stridor , lymphadenopathy, or thyromegaly. Respiratory/Chest: Lungs CTAB. No shortness of breath, chest tenderness, respiratory distress, accessory muscle use. No crackles, rales, rhonchi, stridor , wheezing, dullness Cardiovascular: RRR. S1, S2. No JVD, murmur, bradycardia, tachycardia. Vascular Pulses: Dorsalis-Pedis (R): 2+, Dorsalis-Pedis (L): 2+ Gastrointestinal/Abdominal: Normoactive bowel sounds. Abdomen is soft nondistended. Tenderness and guarding present in the right lower quadrant and left upper quadrant. No rebound tenderness elicited. Negative psoas sign. Negative Rovsing sign. No palpable masses or organomegaly present.. Lymphatic: No adenopathy, tenderness. Musculoskeletal/Extremities: Normal inspection. FROM of all extremities, normal capillary refill. Pelvis Stable. No CVA tenderness. No tenderness to extremities, pedal edema, swelling, erythema or deformity. Integumentary: Appropriate color, dry, warm. No cyanosis, erythema, jaundice or rash Neurologic: electronics computer mechanic II-XII intact. Fully oriented, alert. Appropriate mood/affect. Motor strength 5/5. No appreciable EOM palsy, facial droop or sensory deficit. Past History - Past Medical History Allergies/Adverse Reactions: Allergies Allergy/AdvReac Type Severity Reaction Status Date / Time No Known Allergies Allergy Verified 03/15/18 20:25 Home Medications: Ambulatory Orders Ranitidine [Zantac -] 150 mg PO DAILY #14 tablet 09/19/17 Cyanocobalamin (Vitamin B-12) [Vitamin B-12] 500 mcg PO DAILY 03/15/18 Ferrous Sulfate 325 mg PO DAILY 03/15/18 Sertraline HCl [Zoloft] 200 mg PO DAILY 03/15/18 Sumatriptan Succinate [Imitrex -] 50 mg PO DAILY 03/15/18 Topiramate 50 mg PO DAILY 03/15/18 Anemia: Yes (heavy period) Asthma: No Cancer: No Cardiac Disorders: No CVA: No COPD: No CHF: No DVT: No Dementia: No Diabetes: No GI Disorders: Yes (ulcers) Disorders: No HTN: No Hypercholesterolemia: No Liver Disease: No Seizures: No Thyroid Disease: No - Immunization History Immunization Up to Date: Yes - Suicide/Smoking/Psychosocial Hx Smoking History: Former smoker Have you smoked in the past 12 months: No Number of Cigarettes Smoked Daily: 4 Information on smoking cessation initiated: No Hx Alcohol Use: No Drug/Substance Use Hx: No Substance Use Type: None *Physical Exam - Vital Signs Last Vital Signs Temp Pulse Resp BP Pulse Ox 98.6 F 89 18 119/78 100 03/15/18 17:08 03/15/18 17:08 03/15/18 17:08 03/15/18 17:08 03/15/18 19:41 Moderate Sedation - Procedure Monitoring Vital Signs: Procedure Monitoring Vital Signs Temperature 98.6 F 03/15/18 17:08 Pulse Rate 89 03/15/18 17:08 Respiratory Rate 18 03/15/18 17:08 Blood Pressure 119/78 03/15/18 17:08 O2 Sat by Pulse Oximetry (%) 100 03/15/18 19:41 ED Treatment Course - LABORATORY CBC & Chemistry Diagram: 03/15/18 17:45 03/15/18 17:45 - ADDITIONAL ORDERS Additional order review: Laboratory Results 03/15/18 03/15/18 17:55 17:45 Sodium 139 Potassium 4.1 Chloride 105 Carbon Dioxide 26 Anion Gap 8 BUN 17 Creatinine 0.8 Creat Clearance w eGFR > 60 Random Glucose 76 Calcium 9.4 Total Bilirubin 0.7 AST 15 ALT 17 Alkaline Phosphatase 79 Total Protein 7.9 Albumin 4.3 Lipase 107 Urine HCG, Qual Negative 03/15/18 17:45 RBC 5.50 H MCV 64.7 L MCHC 31.2 L RDW 20.3 H MPV 8.8 Neutrophils % 59.6 Lymphocytes % 23.4 D Monocytes % 7.4 Eosinophils % 8.2 H Basophils % 1.4 - RADIOLOGY Radiology Studies Ordered: Category Date Time Status ABDOMEN & PELVIS CT WITH CONTR [CT] Stat CT Scan 03/15/18 20:00 Ordered - Medications Given in the ED: ED Medications Discontinued Medications Generic Name Dose Route Start Last Admin Trade Name Freq PRN Reason Stop Dose Admin Famotidine/Sodium Chloride 20 mg in 50 mls @ 100 mls/hr 03/15/18 17:11 18:14 Pepcid 20 Mg Premixed Ivpb - IVPB 03/15/18 17:40 100 mls/hr ONCE ONE Administration Sodium Chloride 1,000 mls @ 1,000 mls/hr 03/15/18 17:11 03/15/18 18:15 Normal Saline - IV 03/15/18 18:10 1,000 mls/hr ASDIR STA Administration Ondansetron HCl 4 mg 03/15/18 17:11 03/15/18 18:08 Zofran Injection IVPUSH 03/15/18 17:12 4 mg ONCE ONE Administration Medical Decision Making - Medical Decision Making 03/15/18 20:04 A/P: 27-year-old female with abdominal pain, nausea and vomiting and decreased oral intake for 5 days Differential diagnosis this includes but not limited to obstruction, perforation , appendicitis, gastritis, depression, dehydration Labs, urine, Pepcid, Zofran, IV fluids, CTAP with IV contrast 03/15/18 23:10 CT scan is read by Dr. Godinez: No CT evidence of appendicitis. A 2 x 1.2 cm involuting right ovarian follicle is noted. A small amount of free fluid is seen within the cul-de-sac and right posterior adnexa. There is equivocal mild concentric wall thickening along the length of the colon which may be artificial in nature due to under distention. Correlate clinically in regards to possibility of acute colitis. Urinalysis reveals 1+ ketones. I will discharge the patient home if she is tolerating PO's. I discussed the physical exam findings, ancillary test results and final diagnoses with the patient. I answered all of the patient's questions. The patient was satisfied with the care received and felt comfortable with the discharge plan and treatment plan. The patient will call their primary care physician within 24 hours to arrange follow-up and will return to the Emergency Department with any new, persistent or worsening symptoms. *DC/Admit/Observation/Transfer Diagnosis at time of Disposition: Abdominal pain in female - Discharge Dispostion Disposition: HOME Condition at time of disposition: Stable - Referrals Referrals: Jayy Amador MD [Primary Care Provider] - - Patient Instructions Additional Instructions: Eat a bland diet. Start with bananas, rice, applesauce or toast. Avoid spicy or fatty foods. Drink plenty of fluids. Make an appointment with your primary doctor for reevaluation if symptoms do not resolve in the next 5 days. Return to emergency department for any worsening symptoms or any concerns. - Post Discharge Activity Forms/Work/School Notes: Back to Work
[2018-03-15 22:29] LABS: URINE APPEARANCE CLEAR; URINE BILIRUBIN NEGATIVE (<2.0 mg/dL); URINE COLOR STRAW; URINE GLUCOSE (UA) NEGATIVE (NEGATIVE); URINE KETONE 1+ (NEGATIVE); URINE LEUK ESTERASE NEGATIVE (NEGATIVE); URINE NITRITE NEGATIVE (NEGATIVE); URINE PROTEIN NEGATIVE (NEGATIVE); URINE UROBILINOGEN NEGATIVE mg/dL (0.2-1.0)
[2018-03-15 23:36] VITALS: BP 120/78; PULSE 88
== END 2018-03-15 23:35 | disposition home or self-care (01) ==
LOC: JER 16:54
PROC: 3E033GC Introduction of Other Therapeutic Substance into Peripheral Vein, Percutaneous Approach (ICD-10-PCS; principal; 2018-03-15)
PROC: 3E0337Z Introduction of Electrolytic and Water Balance Substance into Peripheral Vein, Percutaneous Approach (ICD-10-PCS; 2018-03-15)
DX: R10.9 Unspecified abdominal pain (principal); K21.9 Gastro-esophageal reflux disease without esophagitis; Z87.891 Personal history of nicotine dependence; F41.8 Other specified anxiety disorders
CPT/HCPCS: 36415; 74177-TC; 80053; 81003; 83690; 84703; 85025; 87086; 96361; 96365; 96375; 99284-25; J7030

== ENCOUNTER 2018-06-05 16:03 | Emergency (ER) | payer OTHER ==
[2018-06-05 16:42] VITALS: TEMP 98.4; BMI 31.6
[2018-06-05] MEDS ORDERED: SODIUM CHLORIDE 0.9% 500 ML INFUS.BAG IV ONE (18:03)
--- NOTE | 2018-06-05 18:06 | PDOC ---
History of Present Illness - General Chief Complaint: Lightheaded Stated Complaint: DIZZINESS Time Seen by Provider: 06/05/18 16:59 - History of Present Illness Initial Comments: 06/05/18 18:03 28-year-old female with a history of gastritis presents for evaluation of 3 weeks of lightheaded and dizziness. She also has a past medical history of anemia. She states she's been feeling progressively dizzy over the last 3 weeks without any precipitating event. Past History - Past Medical History Allergies/Adverse Reactions: Allergies Allergy/AdvReac Type Severity Reaction Status Date / Time No Known Allergies Allergy Verified 06/05/18 16:40 Anemia: Yes (heavy period) Asthma: No Cancer: No Cardiac Disorders: No CVA: No COPD: No CHF: No DVT: No Dementia: No Diabetes: No GI Disorders: Yes (ulcers) Disorders: No HTN: No Hypercholesterolemia: No Liver Disease: No Seizures: No Thyroid Disease: No - Immunization History Immunization Up to Date: Yes - Suicide/Smoking/Psychosocial Hx Smoking History: Never smoked Have you smoked in the past 12 months: No Number of Cigarettes Smoked Daily: 4 Hx Alcohol Use: No Drug/Substance Use Hx: No Substance Use Type: None Review of Systems - Review of Systems Constitutional: No: Fever Neurological: Yes: Dizziness. No: Headache *Physical Exam - Vital Signs Last Vital Signs Temp Pulse Resp BP Pulse Ox 98.4 F 86 16 96/56 L 98 06/05/18 16:40 06/05/18 16:40 06/05/18 16:40 06/05/18 16:40 06/05/18 16:40 - Physical Exam Comments: 06/05/18 18:04 HEAD: NC/AT EYES: Conjuntiva clear Ears: Canals and TM's normal NOSE: No d/c THROAT: Moist mucous membrances, oral pharanx clear, uvula midline NECK: Supple without adenopathy CARDIAC: S1 S2 LUNGS: CTA Full and Equal breath sounds ABDOMEN: Soft NT ND MS: Full ROM in all joints without edema NEUROLOGIC: No gross sensory or motor deficits, NVID SKIN: Normal color and temperature no lesions or rashes Medical Decision Making - Medical Decision Making 06/05/18 18:05 28-year-old female with a past medical history of anemia and gastritis presents for 3 weeks of dizziness. She is hypotensive and symptomatic on examination. Her exam is otherwise benign. I've ordered preliminary blood work and IV fluids I will transfer her to the main emergency room and discussed with attending physician. *DC/Admit/Observation/Transfer Diagnosis at time of Disposition: Dizziness - Referrals Referrals: Jayy Amador MD [Primary Care Provider] - - Patient Instructions - Post Discharge Activity
[2018-06-05 18:51] LABS: BASO % 0.6 % (0-2.0); HEMATOCRIT 30.2 % (32.4-45.2); HEMOGLOBIN 9.2 GM/dL (10.7-15.3); LYMPH % 21.1 % (8-40); MCHC 30.7 g/dl (32.0-36.0); MEAN CELL VOLUME 63.8 fl (80-96); MEAN PLT VOLUME 8.8 fl (7.5-11.1); MONO % 8.2 % (3.8-10.2); NEUT % 61.1 % (42.8-82.8); PLATELET COUNT 295 K/MM3 (134-434); RBC 4.73 M/mm3 (3.60-5.2); RDW 20.1 % (11.6-15.6); WHITE BLOOD COUNT 7.5 K/mm3 (4.0-10.0)
[2018-06-05 18:57] LABS: MCH 19.6 pg (25.7-33.7)
[2018-06-05 19:26] LABS: ALBUMIN 3.8 g/dl (3.4-5.0); ALK PHOS 81 U/L (45-117); ANION GAP 6 MMOL/L (8-16); BILIRUBIN,TOTAL 0.2 mg/dL (0.2-1); BLOOD UREA NITROGEN 17 mg/dL (7-18); CALCIUM 8.5 mg/dL (8.5-10.1); CHLORIDE 107 mmol/L (98-107); CO2 27 mmol/L (21-32); GLUCOSE,RANDOM 79 mg/dL (74-106); POTASSIUM 4.2 mmol/L (3.5-5.1); SGOT/AST 21 U/L (15-37); SGPT/ALT 24 U/L (13-61); SODIUM 140 mmol/L (136-145); TOT PROT 7.2 g/dl (6.4-8.2)
--- NOTE | 2018-06-05 20:02 | PDOC ---
History of Present Illness - General Chief Complaint: Lightheaded Stated Complaint: DIZZINESS Time Seen by Provider: 06/05/18 16:59 History Source: Patient Exam Limitations: No Limitations - History of Present Illness Initial Comments: 28 yo F w a pmh of anemia and GERD presents to the ER with 3 weeks of worsening dyspnea, fatigue, and lightheadedness. She states she always has anemia but her symptoms have worsened over the past few weeks. She denies any chest pain, SOB, or difficulty breathing. She also denies having any rectal or vaginal bleeding. Also denies vomiting blood at any point. She endorses a hx of GERD in the past and has had blood in her stools years ago. The patient was originally seen in fast track and then uptriaged to the main ED. PCP: Jayy Amador PSH: 2 C-sections, 3rd breast removal Allergies: NKA, NKDA Social Hx: Former smoker - stopped 3 years ago smoked ~ 3 cigs/day. Denies alcohol or other substance usage. Past History - Past Medical History Allergies/Adverse Reactions: Allergies Allergy/AdvReac Type Severity Reaction Status Date / Time No Known Allergies Allergy Verified 06/05/18 16:40 Home Medications: Ambulatory Orders NK [No Known Home Medication] 06/05/18 Anemia: Yes (heavy period) Asthma: No Cancer: No Cardiac Disorders: No CVA: No COPD: No CHF: No DVT: No Dementia: No Diabetes: No GI Disorders: Yes (ulcers) Disorders: No HTN: No Hypercholesterolemia: No Liver Disease: No Seizures: No Thyroid Disease: No - Immunization History Immunization Up to Date: Yes - Suicide/Smoking/Psychosocial Hx Smoking History: Never smoked Have you smoked in the past 12 months: No Number of Cigarettes Smoked Daily: 4 Hx Alcohol Use: No Drug/Substance Use Hx: No Substance Use Type: None Review of Systems - Review of Systems Able to Perform ROS?: Yes Comments:: CONSTITUTIONAL: Present: Fatigue Absent: fever, no chills EYES: Absent: visual changes ENT: Absent: ear pain, no sore throat CARDIOVASCULAR: Absent: chest pain, no palpitations RESPIRATORY: Absent: cough, no SOB GI: Absent: abdominal pain, no nausea, no vomiting, no constipation, no diarrhea GENITOURINARY: Absent: dysuria, no frequency, no hematuria MUSKULOSKELETAL: Absent: back pain, no arthralgia, no myalgia SKIN: Absent: rash NEURO: Absent: headache *Physical Exam - Vital Signs Last Vital Signs Temp Pulse Resp BP Pulse Ox 98.4 F 86 16 96/56 L 98 06/05/18 16:40 06/05/18 16:40 06/05/18 16:40 06/05/18 16:40 06/05/18 16:40 - Physical Exam Comments: GENERAL: Well-appearing, well-nourished. No apparent distress. Patient appears pale. HEENT: Normocephalic, atraumatic. PERRL, EOM intact. CARDIOVASCULAR: Normal S1, S2. Regular rate and rhythm. PULMONARY: No evidence of respiratory distress. Lungs clear to auscultation bilaterally. No wheezing, rales or rhonchi. ABDOMEN: Soft, non-distended, non-tender. EXTREMITIES: Normal ROM in all four extremities. No gross deformities. SKIN: Pale, warm, dry. No rash NEUROLOGICAL: No focal neurological deficits. ED Treatment Course - LABORATORY CBC & Chemistry Diagram: 06/05/18 18:27 06/05/18 18:27 - ADDITIONAL ORDERS Additional order review: Laboratory Results 06/05/18 06/05/18 06/05/18 19:31 18:27 18:27 Sodium 140 Potassium 4.2 Chloride 107 Carbon Dioxide 27 Anion Gap 6 L BUN 17 Creatinine 1.0 Creat Clearance w eGFR 65.55 Random Glucose 79 Calcium 8.5 Total Bilirubin 0.2 AST 21 ALT 24 Alkaline Phosphatase 81 Total Protein 7.2 Albumin 3.8 Vitamin B12 333 Urine HCG, Qual Stool Occult Blood Negative 06/05/18 18:13 Sodium Potassium Chloride Carbon Dioxide Anion Gap BUN Creatinine Creat Clearance w eGFR Random Glucose Calcium Total Bilirubin AST ALT Alkaline Phosphatase Total Protein Albumin Vitamin B12 Urine HCG, Qual Negative Stool Occult Blood 06/05/18 18:27 RBC 4.73 MCV 63.8 L MCHC 30.7 L RDW 20.1 H MPV 8.8 Neutrophils % 61.1 Lymphocytes % 21.1 Monocytes % 8.2 Eosinophils % 9.0 H Basophils % 0.6 - Medications Given in the ED: ED Medications Discontinued Medications Generic Name Dose Route Start Last Admin Trade Name Freq PRN Reason Stop Dose Admin Sodium Chloride 1,000 ml 06/05/18 18:03 06/05/18 18:48 Normal Saline - IV 06/05/18 18:04 1,000 ml ONCE ONE Administration Medical Decision Making - Medical Decision Making 28 yo F w a pmh of anemia and GERD presents to the ER with 3 weeks of worsening dyspnea, fatigue, and lightheadedness. She states she always has anemia but her symptoms have worsened over the past few weeks. She denies any chest pain, SOB, or difficulty breathing. She also denies having any rectal or vaginal bleeding. Also denies vomiting blood at any point. She endorses a hx of GERD in the past and has had blood in her stools years ago. The patient was originally seen in fast track and then uptriaged to the main ED. VS: borderline hypotensive but patient says this is her norm. DDx IBNLT: Anemia - macrocytic vs normocytic vs microcytic, GI bleed. Plan: Labs, urine, hcg, IV hydration, re-assess. MCV decreased Mentzker index is 13.8 suggesting this is likely iron deficiency anemia. - Stool for occult blood negative. Will DC with pcp follow up. *DC/Admit/Observation/Transfer Diagnosis at time of Disposition: Dizziness - Discharge Dispostion Disposition: HOME Condition at time of disposition: Stable Decision to Admit order: No - Referrals Referrals: Jayy Amador MD [Primary Care Provider] - - Patient Instructions Printed Discharge Instructions: Anemia: How Food and Vitamins Can Help, Iron- Deficiency Anemia, Anemia, DI for Iron Deficiency Anemia-Adult Additional Instructions: You came into the ER with lightheadedness and dizziness. We did some blood tests and found that your hemoglobin is 9.2. This is likely because you are low on Iron. It is very important for you to take iron supplements to help your anemia. Please make sure to call your primary care doctor and schedule an appointment in the next 3 to 5 days to make sure you are getting better and being taken care of. Come back to the ER immediately if you pass out, feel really weak, or have any other new or worsening concerns. Thank you for coming to the [facility] ER. We hope you feel better soon! Print Language: ESTONIAN - Post Discharge Activity
[2018-06-05 20:20] LABS: ANISOCYTOSIS 2+; PLATELET ESTIMATE ADEQUATE
[2018-06-05 20:22] VITALS: BP 108/62; PULSE 84
--- NOTE | 2018-06-05 20:22 | PDOC ---
Attending Attestation - HPI HPI: 06/05/18 20:27 The patient is a 28 year old female with a past medical history of anemia, gastritis, and GERD here today for evaluation of lightheadedness. The patient reports that she has had lightheadedness, dizziness, and weakness for the past 3 weeks. Patient denies headache, lightheadedness. Denies fever, chills. Denies chest pain, shortness of breath. Denies nausea, vomiting, diarrhea, abdominal pain. Denies vaginal discharge. Allergies: NKA PCP: Jayy Amador <Rajan Aparicio - Last Filed: 06/05/18 20:26> - Resident Resident Name: Ronald Severino - ED Attending Attestation I have performed the following: I have examined & evaluated the patient, The case was reviewed & discussed with the resident, I agree w/resident's findings & plan, Exceptions are as noted - Physicial Exam PE: GENERAL: Awake, alert, and fully oriented, in no acute distress HEAD: No signs of trauma EYES: PERRLA, EOMI, sclera anicteric, conjunctiva clear ENT: Auricles normal inspection, hearing grossly normal, nares patent, oropharynx clear without exudates. Moist mucosa NECK: Normal ROM, supple, no lymphadenopathy, JVD, or masses LUNGS: Breath sounds equal, clear to auscultation bilaterally. No wheezes, and no crackles HEART: Regular rate and rhythm, normal S1 and S2, no murmurs, rubs or gallops ABDOMEN: Soft, nontender, normoactive bowel sounds. No guarding, no rebound. No masses EXTREMITIES: Normal range of motion, no edema. No clubbing or cyanosis. No cords, erythema, or tenderness NEUROLOGICAL: Cranial nerves II through XII grossly intact. Normal speech, normal gait. Motor and sensation intact SKIN: Warm, Dry, normal turgor, no rashes or lesions noted. - Medical Decision Making Pt states her BP has been chronically the same, this is her baseline. She is noted to have anemia, unknown source (does not endorse heavy periods, and has negative stool occult). Will start on iron in light of low MCV. DC home. <María Kothari - Last Filed: 06/05/18 22:11> Attestations - Attestations 06/05/18 20:27 Documentation prepared by JAREN Hurst, acting as certified medical biller for María Kothari MD. <Rajan Aparicio - Last Filed: 06/05/18 20:26>
== END 2018-06-05 20:22 | disposition home or self-care (01) ==
LOC: JER 16:03 → JERFT 16:03 → JER 20:22
DX: D64.9 Anemia, unspecified (principal)
CPT/HCPCS: 36415; 80053; 82272; 82607; 84443; 84703; 85025; 99281-25

== ENCOUNTER 2018-11-14 22:22 | Emergency (ER) | payer OTHER ==
[2018-11-14 22:39] VITALS: BP 103/64; PULSE 98; TEMP 98.2; BMI 33.6
--- NOTE | 2018-11-14 23:41 | PDOC ---
*Physical Exam - Vital Signs Last Vital Signs Temp Pulse Resp BP Pulse Ox 98.2 F 98 H 17 103/64 100 11/14/18 22:36 11/14/18 22:36 11/14/18 22:36 11/14/18 22:36 11/14/18 22:36 Medical Decision Making - Medical Decision Making 11/14/18 23:41 Patient seen by the advanced practice provider under my direct supervision. Ancillary testing reviewed as necessary. I agree with plan as outlined by the advanced practice provider. *DC/Admit/Observation/Transfer Diagnosis at time of Disposition: Right otitis externa Qualifiers: Otitis externa type: unspecified type Chronicity: acute Qualified Code(s): H60.501 - Unspecified acute noninfective otitis externa, right ear - Discharge Dispostion Disposition: HOME - Prescriptions Prescriptions: Ofloxacin Otic [Floxin Otic -] 10 drop OT BID #1 bottle - Referrals Referrals: Jayy Amador MD [Primary Care Provider] - Call tomorrow - Patient Instructions Printed Discharge Instructions: DI for Common Cold Additional Instructions: take ibuprofen every 6 hours as needed for pain follow up with your doctor as soon as possible. use ofloxacin as prescribed return to the ER for any worsening symptoms - Post Discharge Activity Forms/Work/School Notes: Back to Work
[2018-11-14] MEDS ORDERED: IBUPROFEN 600 MG TABLET (FP) PO ONE ×2 (23:43→23:47)
--- NOTE | 2018-11-15 00:22 | PDOC ---
History of Present Illness - General Chief Complaint: Cold Symptoms Stated Complaint: HEADACHE Time Seen by Provider: 11/14/18 23:39 History Source: Patient - History of Present Illness Initial Comments: 11/14/18 23:42 28 year old female c/o right sided throat pain and ear pain since 8pm. denies taking pain medication. denies fever/chills, nausea/ vomiting, abdominal pain PmHX: anemia, gastritis Past History - Past Medical History Allergies/Adverse Reactions: Allergies Allergy/AdvReac Type Severity Reaction Status Date / Time No Known Allergies Allergy Verified 11/14/18 22:39 Home Medications: Ambulatory Orders Ofloxacin Otic [Floxin Otic -] 10 drop OT BID #1 bottle 11/15/18 Anemia: Yes (heavy period) Asthma: No Cancer: No Cardiac Disorders: No CVA: No COPD: No CHF: No DVT: No Dementia: No Diabetes: No GI Disorders: Yes (ulcers) Disorders: No HTN: No Hypercholesterolemia: No Liver Disease: No Seizures: No Thyroid Disease: No - Immunization History Immunization Up to Date: Yes - Suicide/Smoking/Psychosocial Hx Smoking History: Current every day smoker Have you smoked in the past 12 months: No Number of Cigarettes Smoked Daily: 4 Information on smoking cessation initiated: Yes Hx Alcohol Use: No Drug/Substance Use Hx: No Substance Use Type: None Review of Systems - Review of Systems Able to Perform ROS?: Yes Is the patient limited [place] proficient: No Constitutional: No: Symptoms Reported, See HPI, Chills, Diaphoresis, Fever, Loss of Appetite, Malaise, Night Sweats, Weakness, Weight Stable, Unintentional Wgt. Loss, Unexplained wgt Loss, Other HEENTM: Yes: Throat Pain Respiratory: No: Symptoms reported, See HPI, Cough, Orthopnea, Shortness of Breath, SOB with Exertion, SOB at Rest, Stridor, Wheezing, Productive cough, Hemoptysis, Other Cardiac (ROS): No: Symptoms Reported, See HPI, Chest Pain, Edema, Irregular Heart Rate, Lightheadedness, Palpitations, Syncope, Chest Tightness, Other ABD/GI: No: Symptoms Reported, See HPI, Abdominal Distended, Abd. Pain w/ defecation, Blood Streaked Bowels, Constipated, Diarrhea, Difficulty Swallowing , Nausea, Poor Appetite, Poor Fluid Intake, Rectal Bleeding, Vomiting, Indigestion, Abdominal cramping, Tarry Stools, Other *Physical Exam - Vital Signs Last Vital Signs Temp Pulse Resp BP Pulse Ox 98.2 F 98 H 17 103/64 100 11/14/18 22:36 11/14/18 22:36 11/14/18 22:36 11/14/18 22:36 11/14/18 22:36 - Physical Exam General Appearance: Yes: Appropriately Dressed HEENT: positive: Pharyngeal Erythema, Other (right tm erythematous) Respiratory/Chest: positive: Lungs Clear, Normal Breath Sounds Integumentary: positive: Normal Color, Dry, Warm Neurologic: positive: Fully Oriented, Alert Progress Note - Progress Note Progress Note: A: right otitis externa; pharyngitis P: ofloxacin rapid strep negative, *DC/Admit/Observation/Transfer Diagnosis at time of Disposition: Sore throat Right otitis externa Qualifiers: Otitis externa type: unspecified type Chronicity: acute Qualified Code(s): H60.501 - Unspecified acute noninfective otitis externa, right ear - Discharge Dispostion Disposition: HOME - Prescriptions Prescriptions: Ofloxacin Otic [Floxin Otic -] 10 drop OT BID #1 bottle - Referrals Referrals: Jayy Amador MD [Primary Care Provider] - Call tomorrow - Patient Instructions Printed Discharge Instructions: DI for Common Cold Additional Instructions: take ibuprofen every 6 hours as needed for pain follow up with your doctor as soon as possible. use ofloxacin as prescribed return to the ER for any worsening symptoms - Post Discharge Activity Forms/Work/School Notes: Back to Work
== END 2018-11-15 00:48 | disposition home or self-care (01) ==
LOC: JER 22:22 → JERFT 22:22 → JER 11-15 00:48
DX: J02.9 Acute pharyngitis, unspecified (principal); H60.501 Unspecified acute noninfective otitis externa, right ear
CPT/HCPCS: 87070; 87880; 99281-25

== ENCOUNTER 2019-01-21 12:21 | Emergency (ER) | payer OTHER ==
[2019-01-21 12:25] VITALS: BP 111/69; PULSE 97; TEMP 98; BMI 35.6
--- NOTE | 2019-01-21 12:39 | PDOC ---
History of Present Illness - General Chief Complaint: Injury Stated Complaint: FINGER INJURY Time Seen by Provider: 01/21/19 12:25 History Source: Patient Exam Limitations: No Limitations Past History - Past Medical History Allergies/Adverse Reactions: Allergies Allergy/AdvReac Type Severity Reaction Status Date / Time No Known Allergies Allergy Verified 01/21/19 12:25 Home Medications: Ambulatory Orders NK [No Known Home Medication] 01/21/19 Anemia: Yes (heavy period) Asthma: No Cancer: No Cardiac Disorders: No CVA: No COPD: No CHF: No DVT: No Dementia: No Diabetes: No GI Disorders: Yes (ulcers) Disorders: No HTN: No Hypercholesterolemia: No Liver Disease: No Seizures: No Thyroid Disease: No Other medical history: DEPRESSION - Immunization History Immunization Up to Date: Yes - Psycho Social/Smoking Cessation Hx Smoking History: Never smoked Have you smoked in the past 12 months: No Number of Cigarettes Smoked Daily: 4 Hx Alcohol Use: No Drug/Substance Use Hx: No Substance Use Type: None *Physical Exam - Vital Signs Last Vital Signs Temp Pulse Resp BP Pulse Ox 98 F 97 H 18 111/69 99 01/21/19 12:22 01/21/19 12:22 01/21/19 12:22 01/21/19 12:22 01/21/19 12:22 - Physical Exam Musculoskeletal: positive: Other (R middle finger, nailbed intact, 3 superficial laceration to distal pulp of finger (around 1 cm each), able to flex at DIP joint, no other site of injury of RUE noted) Integumentary: negative: Ecchymosis, Bruising Neurologic: positive: Alert Procedures - Laceration/Wound Repair Right 3rd digit Wound Length: to 2.5 cm Wound Explored: clean Wound's Depth, Shape: superficial Irrigated w/ Saline: Yes Betadine Prep: Yes Anesthesia: 1% Lidocaine Wound Debrided: minimal Wound Repaired With: Sutures, Dermabond Suture Size/Type: 5:0, nylon Number of Sutures: 4 Layer Closure: No ED Treatment Course - RADIOLOGY Radiology Studies Ordered: Category Date Time Status FINGER(S) RIGHT [RAD] Stat Radiology 01/21/19 12:30 Ordered Medical Decision Making - Medical Decision Making 28 y/o F hx of anemia, depression, gastritis presents with injury to R middle finger today. 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 Last tetanus was 2 years ago. Denies other complaints. Plan: Xray to r/o fracture 01/21/19 12:36 Xray negative for fracture 2 of the lacerations were closed with sutures 1 of the superficial laceration was closed with dermabond 01/21/19 13:24 Discharge - Discharge Information Problems reviewed: Yes Clinical Impression/Diagnosis: Laceration of finger Qualifiers: Encounter type: initial encounter Finger: middle finger Damage to nail status: without damage Foreign body presence: without foreign body Laterality: right Qualified Code(s): S61.212A - Laceration without foreign body of right middle finger without damage to nail, initial encounter Condition: Stable Disposition: HOME - Admission No - Follow up/Referral Referrals: Jayy Amador MD [Primary Care Provider] - - Patient Discharge Instructions Patient Printed Discharge Instructions: DI for Laceration Repair -- Finger Additional Instructions: Thank you for choosing [facility]. It was a pleasure taking care of you. Return in 7 days for suture removal Keep site clean and dry for next 24 hours Then you may gently clean with soap and water The glue will peel off on its own in a few days Return to the Emergency Department if your symptoms worsen or persist, you have fever, purulent drainage, redness, streaking or other concerning symptoms. - Post Discharge Activity
== END 2019-01-21 13:28 | disposition home or self-care (01) ==
LOC: JER 12:21 → JERFT 12:21
PROC: 0HQFXZZ Repair Right Hand Skin, External Approach (ICD-10-PCS; principal; 2019-01-21)
DX: S61.212A Laceration without foreign body of right middle finger without damage to nail, initial encounter (principal); W29.0XXA Contact with powered kitchen appliance, initial encounter; Y93.89 Activity, other specified; Y92.010 Kitchen of single-family (private) house as the place of occurrence of the external cause; Y99.8 Other external cause status; D64.9 Anemia, unspecified; F32.9 Major depressive disorder, single episode, unspecified; Z87.19 Personal history of other diseases of the digestive system
CPT/HCPCS: 73140-TC-RT-FY; 99281-25

== ENCOUNTER 2020-07-01 23:54 | Emergency (ER) | payer OTHER ==
[2020-07-02 00:19] VITALS: BP 115/72; PULSE 104; TEMP 98.5; BMI 34.1
[2020-07-02] MEDS ORDERED: KETOROLAC TROMETHAMINE 30 MG/1 ML VIAL IM ONE (00:33)
[2020-07-02] MEDS ORDERED: KETOROLAC TROMETHAMINE 30 MG/1 ML VIAL ONE (00:42)
== END 2020-07-02 01:28 | disposition home or self-care (01) ==
LOC: JER 23:54
PROC: 3E0233Z Introduction of Anti-inflammatory into Muscle, Percutaneous Approach (ICD-10-PCS; principal; 2020-07-01)
DX: M25.522 Pain in left elbow (principal)
CPT/HCPCS: 73070-TC-LT-FY; 73090-TC-LT-FY; 99284-25

== ENCOUNTER 2020-10-29 14:34 | Emergency (ER) | payer OTHER ==
[2020-10-29 14:58] VITALS: BP 125/84; PULSE 89; TEMP 98; BMI 35.9
[2020-10-29] MEDS ORDERED: IBUPROFEN 400 MG TABLET (FP) PO ONE ×2 (15:43→15:46)
[2020-10-29] MEDS ORDERED: FAMOTIDINE 20 MG TABLET PO ONE (15:44)
[2020-10-29] MEDS ORDERED: FAMOTIDINE 20 MG TABLET ONE (15:46)
== END 2020-10-29 20:48 | disposition home or self-care (01) ==
LOC: JERFT 14:34
DX: N64.4 Mastodynia (principal); L29.9 Pruritus, unspecified; N60.02 Solitary cyst of left breast
CPT/HCPCS: 76642-TC-RT; 99284-25

== ENCOUNTER 2020-10-30 20:53 | Emergency (ER) | payer OTHER ==
[2020-10-30] MEDS ORDERED: SILVER SULFADIAZINE 1% TOP CREAM 50 GM JAR TP ONE (20:57)
[2020-10-30 21:20] VITALS: BP 119/78; PULSE 100; TEMP 98.6; BMI 35.6
[2020-10-30] MEDS ORDERED: ASPIRIN 81 MG CHEWABLE TABLETS PO ONE (21:53)
[2020-10-30] MEDS ORDERED: ASPIRIN 81 MG CHEWABLE TABLETS ONE (22:09)
[2020-10-30 22:30] LABS: BASO % 0.9 % (0-2.0); EOS % 3.4 % (0-4.5); HEMATOCRIT 33.3 % (32.4-45.2); HEMOGLOBIN 10.5 GM/dL (10.7-15.3); LYMPH % 17.8 % (8-40); MCHC 31.4 g/dl (32.0-36.0); MEAN PLT VOLUME 8.2 fl (7.5-11.1); MONO % 6.3 % (3.8-10.2); NEUT % 71.6 % (42.8-82.8); PLATELET COUNT 346 10^3/uL (134-434); RBC 5.28 M/mm3 (3.60-5.2); WHITE BLOOD COUNT 13.1 K/mm3 (4.0-10.0)
[2020-10-30 22:36] LABS: MCH 19.8 pg (25.7-33.7)
[2020-10-30 22:50] LABS: CHLORIDE 103 mmol/L (98-107); SODIUM 138 mmol/L (136-145)
[2020-10-30 22:52] LABS: ALBUMIN 3.8 g/dl (3.4-5.0); ANION GAP 4 MMOL/L (8-16); BLOOD UREA NITROGEN 14.2 mg/dL (7-18); CALCIUM 9.3 mg/dL (8.5-10.1); CO2 31 mmol/L (21-32); GLUCOSE,RANDOM 79 mg/dL (74-106); MAGNESIUM 2.4 mg/dL (1.8-2.4)
[2020-10-30 22:55] LABS: SGOT/AST 21 U/L (15-37); SGPT/ALT 25 U/L (13-61)
[2020-10-30 22:57] LABS: BILIRUBIN,TOTAL 0.6 mg/dL (0.2-1); TOT PROT 7.8 g/dl (6.4-8.2)
[2020-10-30 22:58] LABS: ALK PHOS 85 U/L (45-117)
[2020-10-30 23:59] LABS: ANISOCYTOSIS 1+; MACROCYTOSIS 0; OVALOCYTE 1+; PLATELET ESTIMATE NORMAL; TEAR DROP CELLS 1+
[2020-10-31] MEDS ORDERED: NAPROXEN 500 MG TABLET ONE (00:54)
[2020-10-31] MEDS ORDERED: NAPROXEN 500 MG TABLET PO ONE (00:54)
[2020-10-31 01:25] LABS: URINE APPEARANCE CLEAR; URINE BILIRUBIN NEGATIVE (NEGATIVE); URINE COLOR YELLOW; URINE GLUCOSE (UA) NEGATIVE (NEGATIVE); URINE KETONE NEGATIVE (NEGATIVE); URINE LEUK ESTERASE NEGATIVE (NEGATIVE); URINE NITRITE NEGATIVE (NEGATIVE); URINE PROTEIN NEGATIVE (NEGATIVE); URINE UROBILINOGEN 0.2 mg/dL (0.2-1.0)
== END 2020-10-31 00:59 | disposition home or self-care (01) ==
LOC: JER 20:53
DX: R07.81 Pleurodynia (principal)
CPT/HCPCS: 36415; 71046-TC-FY; 71275-TC; 80053; 81003; 82550; 83735; 84484; 84703; 85025; 85379; 93005; 93010; 99285-25; C9803; Q9967; U0003; U0005

== ENCOUNTER 2020-12-01 12:23 | Emergency (ER) | payer OTHER ==
[2020-12-01 12:43] VITALS: TEMP 98.9; BMI 35.6
[2020-12-01] MEDS ORDERED: ACETAMINOPHEN 500 MG TABLET (FP) PO ONE (13:34)
[2020-12-01] MEDS ORDERED: ACETAMINOPHEN 325 MG TABLET (FP) ONE (13:42)
[2020-12-01 14:28] LABS: CHLORIDE 108 mmol/L (98-107); SODIUM 140 mmol/L (136-145)
[2020-12-01 14:30] LABS: CALCIUM 9.1 mg/dL (8.5-10.1)
[2020-12-01 14:31] LABS: ALBUMIN 3.6 g/dl (3.4-5.0); ANION GAP 6 MMOL/L (8-16); CO2 26 mmol/L (21-32); GLUCOSE,RANDOM 86 mg/dL (74-106); INR 0.94 (0.83-1.09); PROTHROMBIN TIME (PATIENT) 11.5 SEC (9.7-13.0)
[2020-12-01 14:34] LABS: ACTIVATED PTT 27.9 SECONDS (25.2-36.5); CREATININE 0.9 mg/dL (0.55-1.3); SGOT/AST 16 U/L (15-37); SGPT/ALT 25 U/L (13-61)
[2020-12-01 14:35] LABS: BILIRUBIN,TOTAL 0.2 mg/dL (0.2-1)
[2020-12-01 14:36] LABS: TOT PROT 7.5 g/dl (6.4-8.2)
[2020-12-01 14:37] LABS: ALK PHOS 76 U/L (45-117)
[2020-12-01 14:43] LABS: BLOOD UREA NITROGEN 17.2 mg/dL (7-18)
[2020-12-01 15:18] LABS: BASO % 0.7 % (0-2.0); EOS % 4.1 % (0-4.5); HEMATOCRIT 33.1 % (32.4-45.2); HEMOGLOBIN 10.3 GM/dL (10.7-15.3); LYMPH % 20.2 % (8-40); MCHC 31.2 g/dl (32.0-36.0); MEAN CELL VOLUME 63.3 fl (80-96); MEAN PLT VOLUME 8.6 fl (7.5-11.1); MONO % 5.7 % (3.8-10.2); NEUT % 69.3 % (42.8-82.8); PLATELET COUNT 336 10^3/uL (134-434); RBC 5.24 M/mm3 (3.60-5.2); RDW 20.9 % (11.6-15.6); WHITE BLOOD COUNT 8.7 K/mm3 (4.0-10.0)
[2020-12-01 15:22] LABS: MCH 19.8 pg (25.7-33.7)
[2020-12-01 16:43] VITALS: BP 113/74; PULSE 75
== END 2020-12-01 17:50 | disposition home or self-care (01) ==
LOC: JER 12:23
DX: M79.604 Pain in right leg (principal)
CPT/HCPCS: 36415; 71046-TC-FY; 80053; 84484; 84703; 85025; 85610; 85730; 93005; 93010; 93971-TC; 99285-25; C9803; U0003; U0005

== ENCOUNTER 2021-11-11 19:45 | Emergency (ER) | payer OTHER ==
[2021-11-11 19:53] VITALS: BP 100/68; PULSE 100; RESP 18; TEMP 98.1; BMI 35.6
[2021-11-11] MEDS ORDERED: FLUCONAZOLE 150 MG TABLET PO ONE ×2 (21:13→21:15)
[2021-11-11 21:36] LABS: EPI CELLS 19 /uL (0-25.1); HYALINE CASTS 0 /uL (0-3.1); PH,URINE 5.5 (5.0-8.0); URINE APPEARANCE CLEAR; URINE BACTERIA 152 /uL (0-1359); URINE BILIRUBIN NEGATIVE (NEGATIVE); URINE COLOR YELLOW; URINE GLUCOSE (UA) NEGATIVE (NEGATIVE); URINE KETONE NEGATIVE (NEGATIVE); URINE LEUK ESTERASE 2+ (NEGATIVE); URINE NITRITE NEGATIVE (NEGATIVE); URINE PROTEIN NEGATIVE (NEGATIVE); URINE RBC 13 /uL (0-23.9); URINE UROBILINOGEN 0.2 mg/dL (0.2-1.0); URINE WBC 19 /uL (0-25.8)
[2021-11-11 21:38] LABS: HCG,QUALITATIVE URINE Negative
== END 2021-11-11 21:51 | disposition home or self-care (01) ==
LOC: JERFT 19:45
DX: B37.9 Candidiasis, unspecified (principal)
CPT/HCPCS: 36415; 81003; 84703; 87077; 87086; 87491; 87591; 99283-25

== ENCOUNTER 2022-02-17 18:52 | Emergency (ER) | payer OTHER ==
[2022-02-17 19:09] VITALS: RESP 18; BMI 38.8
[2022-02-17] MEDS ORDERED: KETOROLAC TROMETHAMINE 30 MG/1 ML VIAL IM ONE (20:54)
[2022-02-17] MEDS ORDERED: ONDANSETRON 4 MG/2 ML VIAL IM ONE (20:55)
[2022-02-17] MEDS ORDERED: ONDANSETRON 4 MG TABLET PO ONE (21:21)
[2022-02-17] MEDS ORDERED: KETOROLAC TROMETHAMINE 30 MG/1 ML VIAL ONE (21:22)
[2022-02-17] MEDS ORDERED: ONDANSETRON *ODT* 4 MG TABLET ONE (21:22)
[2022-02-17] MEDS ORDERED: ONDANSETRON 4 MG/2 ML VIAL ONE (21:23)
[2022-02-17 21:40] VITALS: BP 104/73; PULSE 103; TEMP 98.7
== END 2022-02-17 22:09 | disposition home or self-care (01) ==
LOC: JER 18:52
PROC: 3E023GC Introduction of Other Therapeutic Substance into Muscle, Percutaneous Approach (ICD-10-PCS; principal; 2022-02-17)
DX: B34.9 Viral infection, unspecified (principal)
CPT/HCPCS: 0241U-QW; 87651; 99284-25

== ENCOUNTER 2022-02-27 15:31 | Emergency (ER) | payer OTHER ==
[2022-02-27 15:57] VITALS: TEMP 98.4; BMI 38.8
[2022-02-27] MEDS ORDERED: ONDANSETRON 4 MG/2 ML VIAL IVPUSH ONE (16:41)
[2022-02-27] MEDS ORDERED: SODIUM CHLORIDE 1,000 ML IV STA (16:41)
[2022-02-27] MEDS ORDERED: ACETAMINOPHEN 1000 MG/100 ML BAG IVPB ONE (16:41)
[2022-02-27] MEDS ORDERED: ACETAMINOPHEN INJECTION 100 ML IVPB ONE (17:12)
[2022-02-27] MEDS ORDERED: ONDANSETRON 4 MG/2 ML VIAL ONE (17:12)
[2022-02-27 17:15] LABS: BASO % 0.3 % (0-2.0); EOS % 6.8 % (0-4.5); HEMATOCRIT 44.3 % (32.4-45.2); HEMOGLOBIN 13.8 GM/dL (10.7-15.3); LYMPH % 8.1 % (8-40); MCHC 31.1 g/dl (32.0-36.0); MONO % 3.9 % (3.8-10.2); NEUT % 80.9 % (42.8-82.8); PLATELET COUNT 344 10^3/uL (134-434); RBC 5.99 M/mm3 (3.60-5.2); WHITE BLOOD COUNT 9.4 K/mm3 (4.0-10.0)
[2022-02-27 17:32] LABS: ALBUMIN 3.9 g/dl (3.4-5.0); BLOOD UREA NITROGEN 17.5 mg/dL (7-18)
[2022-02-27 17:35] LABS: CREATININE 0.8 mg/dL (0.55-1.3)
[2022-02-27 17:37] LABS: BILIRUBIN,TOTAL 0.7 mg/dL (0.2-1); TOT PROT 7.8 g/dl (6.4-8.2)
[2022-02-27] MEDS ORDERED: morphine SULFATE 4 MG/ML VIAL ONE (19:10)
[2022-02-27] MEDS ORDERED: morphine CARPU-JECT 4 MG/1 ML DISP.SYRIN IVPUSH ONE (19:15)
[2022-02-27 19:18] VITALS: BP 96/56; PULSE 79; RESP 18
[2022-02-27 20:30] LABS: EPI CELLS >36 /uL (0-25.1); HCG,QUALITATIVE URINE Negative; HYALINE CASTS 1 /uL (0-3.1); URINE APPEARANCE CLEAR; URINE BACTERIA 506 /uL (0-1359); URINE BILIRUBIN NEGATIVE (NEGATIVE); URINE COLOR YELLOW; URINE GLUCOSE (UA) NEGATIVE (NEGATIVE); URINE KETONE NEGATIVE (NEGATIVE); URINE LEUK ESTERASE TRACE (NEGATIVE); URINE NITRITE NEGATIVE (NEGATIVE); URINE PROTEIN NEGATIVE (NEGATIVE); URINE RBC 12 /uL (0-23.9); URINE UROBILINOGEN 0.2 mg/dL (0.2-1.0); URINE WBC 33 /uL (0-25.8)
== END 2022-02-27 22:32 | disposition home or self-care (01) ==
LOC: JER 15:31
PROC: 3E033GC Introduction of Other Therapeutic Substance into Peripheral Vein, Percutaneous Approach (ICD-10-PCS; principal; 2022-02-27)
DX: R10.30 Lower abdominal pain, unspecified (principal)
CPT/HCPCS: 0241U-QW; 36415; 74177-TC; 80053; 81003; 83690; 84703; 85025; 87086; 99285-25

== ENCOUNTER 2022-03-30 22:08 | Emergency (ER) | payer OTHER ==
[2022-03-30 22:13] VITALS: BP 129/86; PULSE 74; RESP 17; TEMP 98.8; BMI 31.3
[2022-03-31 00:09] LABS: THROAT:GRP A STREP NOT DETECTED (NOTDETECTED)
[2022-03-31] MEDS ORDERED: DEXAMETHASONE SOD PHOSPHATE 10 MG/1 ML VIAL IM ONE (00:45)
[2022-03-31] MEDS ORDERED: DEXAMETHASONE SOD PHOSPHATE 10 MG/1 ML VIAL ONE (00:47)
== END 2022-03-31 01:33 | disposition home or self-care (01) ==
LOC: JERFT 22:08
PROC: 3E0233Z Introduction of Anti-inflammatory into Muscle, Percutaneous Approach (ICD-10-PCS; principal; 2022-03-30)
DX: J02.9 Acute pharyngitis, unspecified (principal)
CPT/HCPCS: 0241U-QW; 36415; 86308; 87624; 87651; 99284-25; J1100

== ENCOUNTER 2022-06-20 16:54 | Emergency (ER) | payer OTHER ==
[2022-06-20 17:06] VITALS: BP 121/82; PULSE 89; RESP 18; TEMP 98.6; BMI 33.0
[2022-06-20] MEDS ORDERED: LIDOCAINE 5% TOPICAL PATCH TP ONE (18:53)
[2022-06-20] MEDS ORDERED: ACETAMINOPHEN 1000 MG/100 ML BAG IVPB ONE (18:53)
[2022-06-20 20:10] LABS: PH,URINE 5.5 (5.0-8.0); URINE APPEARANCE CLEAR; URINE BILIRUBIN NEGATIVE (NEGATIVE); URINE COLOR YELLOW; URINE GLUCOSE (UA) NEGATIVE (NEGATIVE); URINE KETONE 4+ (NEGATIVE); URINE LEUK ESTERASE NEGATIVE (NEGATIVE); URINE NITRITE NEGATIVE (NEGATIVE); URINE PROTEIN TRACE (NEGATIVE); URINE UROBILINOGEN 0.2 mg/dL (0.2-1.0)
[2022-06-20] MEDS ORDERED: ACETAMINOPHEN INJECTION 100 ML IVPB ONE (20:27)
[2022-06-20] MEDS ORDERED: LIDOCAINE 5% TOPICAL PATCH ONE (20:27)
[2022-06-20 21:50] LABS: BASO % 0.7 % (0-2.0); EOS % 6.5 % (0-4.5); HEMATOCRIT 44.1 % (32.4-45.2); HEMOGLOBIN 14.7 GM/dL (10.7-15.3); LYMPH % 24.3 % (8-40); MCHC 33.4 g/dl (32.0-36.0); MEAN CELL VOLUME 74.8 fl (80-96); MEAN PLT VOLUME 8.9 fl (7.5-11.1); NEUT % 61.5 % (42.8-82.8); PLATELET COUNT 322 10^3/uL (134-434); RDW 17.8 % (11.6-15.6); WHITE BLOOD COUNT 7.8 K/mm3 (4.0-10.0)
[2022-06-20 22:03] LABS: INR 1.17 (0.83-1.09); PROTHROMBIN TIME (PATIENT) 13.6 SEC (9.7-13.0)
[2022-06-20 22:06] LABS: ACTIVATED PTT 37.9 SECONDS (25.2-36.5)
[2022-06-20 22:11] LABS: ALBUMIN 4.3 g/dl (3.4-5.0); BLOOD UREA NITROGEN 19.1 mg/dL (7-18); CALCIUM 9.7 mg/dL (8.5-10.1)
[2022-06-20 22:15] LABS: CREATININE 0.8 mg/dL (0.55-1.3)
[2022-06-20 22:16] LABS: BILIRUBIN,TOTAL 0.5 mg/dL (0.2-1); TOT PROT 8.5 g/dl (6.4-8.2)
[2022-06-21] MEDS ORDERED: LIDOCAINE PATCH REMOVAL MC SCH (07:00)
== END 2022-06-20 23:23 | disposition home or self-care (01) ==
LOC: JER 16:54
PROC: 3E033NZ Introduction of Analgesics, Hypnotics, Sedatives into Peripheral Vein, Percutaneous Approach (ICD-10-PCS; principal; 2022-06-20)
DX: R07.89 Other chest pain (principal); M54.50 Low back pain, unspecified; R05.1 Acute cough; Z20.822 Contact with and (suspected) exposure to COVID-19
CPT/HCPCS: 0241U-QW; 36415; 71045-TC-FY; 80053; 81003; 84484; 85025; 85610; 85730; 87086; 93005; 93010; 99285-25

== ENCOUNTER 2023-04-18 00:42 | Emergency (ER) | payer OTHER ==
[2023-04-18 01:03] VITALS: BP 110/76; PULSE 73; RESP 20; TEMP 98.6; BMI 24.7
[2023-04-18] MEDS ORDERED: MAG HYDROX/AL HYDROX/SIMETH 30 ML UNIT-DOSE CUP ONE (01:32)
[2023-04-18] MEDS ORDERED: FAMOTIDINE 20 MG/50 ML IVPB 20 MG/50 ML MG IVPB ONE (01:32)
[2023-04-18] MEDS: MAG HYDROX/AL HYDROX/SIMETH 30 ML UNIT-DOSE CUP PO ONE (01:46)
[2023-04-18 02:03] LABS: BASO % 0.7 % (0-2.0); HEMATOCRIT 42.3 % (32.4-45.2); LYMPH % 32.5 % (8-40); MCH 27.3 pg (25.7-33.7); MCHC 33.2 g/dl (32.0-36.0); MEAN CELL VOLUME 82.1 fl (80-96); MEAN PLT VOLUME 8.4 fl (7.5-11.1); MONO % 5.9 % (3.8-10.2); NEUT % 46.9 % (42.8-82.8); PLATELET COUNT 232 10^3/uL (134-434); RBC 5.15 M/mm3 (3.60-5.2); RDW 14.9 % (11.6-15.6)
[2023-04-18] MEDS ORDERED: ONDANSETRON 4 MG/2 ML VIAL ONE (02:06)
[2023-04-18 02:13] LABS: URINE APPEARANCE CLOUDY; URINE BILIRUBIN NEGATIVE (NEGATIVE); URINE COLOR YELLOW; URINE GLUCOSE (UA) NEGATIVE (NEGATIVE); URINE KETONE NEGATIVE (NEGATIVE); URINE LEUK ESTERASE NEGATIVE (NEGATIVE); URINE NITRITE NEGATIVE (NEGATIVE); URINE PROTEIN NEGATIVE (NEGATIVE)
[2023-04-18 02:15] LABS: HCG,QUALITATIVE URINE Negative
[2023-04-18] MEDS: FAMOTIDINE 20 MG/50 ML IVPB 20 MG/50 ML MG IVPB ONE (02:16)
[2023-04-18] MEDS: ONDANSETRON 4 MG/2 ML VIAL IVPUSH ONE (02:16)
[2023-04-18] MEDS: LACTATED RINGERS SOLUTION 1000 ML INFUS.BAG IV ONE (02:16)
[2023-04-18 02:44] LABS: POTASSIUM 3.9 mmol/L (3.5-5.1)
[2023-04-18 02:46] LABS: ALBUMIN 3.4 g/dl (3.4-5.0); CALCIUM 8.2 mg/dL (8.5-10.1)
[2023-04-18 02:47] LABS: BLOOD UREA NITROGEN 18.9 mg/dL (7-18); MAGNESIUM 2.1 mg/dL (1.8-2.4)
[2023-04-18 02:49] LABS: CREATININE 0.7 mg/dL (0.55-1.3); PHOSPHOROUS 3.4 mg/dL (2.5-4.9)
[2023-04-18 02:51] LABS: BILIRUBIN,TOTAL 0.8 mg/dL (0.2-1); TOT PROT 6.4 g/dl (6.4-8.2)
[2023-04-18] MEDS ORDERED: ACETAMINOPHEN 1000 MG/100 ML BAG IVPB ONE (02:51)
[2023-04-18] MEDS ORDERED: ACETAMINOPHEN INJECTION 100 ML IVPB ONE (02:56)
[2023-04-18] MEDS: ACETAMINOPHEN 1000 MG/100 ML BAG IVPB ONE (02:58)
[2023-04-18] MEDS: LIDOCAINE 4% PATCH TP ONE (03:02)
[2023-04-18] MEDS ORDERED: LIDOCAINE 4% PATCH TP ONE (03:02)
[2023-04-18] MEDS ORDERED: LIDOCAINE PATCH REMOVAL MC SCH (22:00)
== END 2023-04-18 03:59 | disposition home or self-care (01) ==
LOC: JER 00:42
PROC: 3E033GC Introduction of Other Therapeutic Substance into Peripheral Vein, Percutaneous Approach (ICD-10-PCS; principal; 2023-04-18)
PROC: 3E033NZ Introduction of Analgesics, Hypnotics, Sedatives into Peripheral Vein, Percutaneous Approach (ICD-10-PCS; 2023-04-18)
PROC: 3E033GC Introduction of Other Therapeutic Substance into Peripheral Vein, Percutaneous Approach (ICD-10-PCS; 2023-04-18)
DX: M54.50 Low back pain, unspecified (principal); K29.70 Gastritis, unspecified, without bleeding; R30.0 Dysuria; R10.13 Epigastric pain; R63.0 Anorexia; R11.0 Nausea; Z20.822 Contact with and (suspected) exposure to COVID-19
CPT/HCPCS: 0241U-QW; 36415; 80053; 81003; 83690; 83735; 84100; 84703; 85025; 87086; 96365; 96375; 99284-25; J0131

== ENCOUNTER 2023-08-10 14:41 | Emergency (ER) | payer OTHER ==
[2023-08-10 14:56] VITALS: BP 100/59; PULSE 83; RESP 18; TEMP 98.6; BMI 24.9
[2023-08-10] MEDS ORDERED: diphenhydrAMINE HCL 25 MG CAPSULE (FP) PO ONE (16:41)
[2023-08-10] MEDS: diphenhydrAMINE HCL 25 MG CAPSULE (FP) PO ONE (16:42)
== END 2023-08-10 16:59 | disposition home or self-care (01) ==
LOC: JERFT 14:41
DX: S50.861A Insect bite (nonvenomous) of right forearm, initial encounter (principal); L08.9 Local infection of the skin and subcutaneous tissue, unspecified; W57.XXXA Bitten or stung by nonvenomous insect and other nonvenomous arthropods, initial encounter
CPT/HCPCS: 99283-25

== ENCOUNTER 2023-08-14 19:52 | Emergency (ER) | payer OTHER ==
[2023-08-14 20:01] VITALS: BP 102/64; PULSE 83; RESP 18; TEMP 98.5; BMI 23.6
[2023-08-14] MEDS ORDERED: DALBAVANCIN HCL 500 MG VIAL (RESTRICTED TO ID ONLY) IVPB ONE (20:57)
[2023-08-14] MEDS: DALBAVANCIN HCL 1,500 MG in DEXTROSE 5%-WATER - 500 ML IVPB ONE (21:22)
[2023-08-14] MEDS ORDERED: BACITRACIN ZINC 15 GM TUBE TOPICAL OINTMENT ONE (21:48)
== END 2023-08-14 22:49 | disposition home or self-care (01) ==
LOC: JER 19:52
DX: L03.113 Cellulitis of right upper limb (principal)
CPT/HCPCS: 99284-25; J0875

== ENCOUNTER 2023-08-23 20:18 | Emergency (ER) | payer OTHER ==
[2023-08-23 20:25] VITALS: BP 97/57; PULSE 82; RESP 18; TEMP 98.2; BMI 24.9
[2023-08-23] MEDS ORDERED: SULFAMETHOXAZOLE/TRIMETHOPRIM 800MG/160MG D.S. TABLET ONE (22:06)
[2023-08-23] MEDS: SULFAMETHOXAZOLE/TRIMETHOPRIM 800MG/160MG D.S. TABLET PO ONE (22:09)
== END 2023-08-23 22:10 | disposition home or self-care (01) ==
LOC: JER 20:18
DX: L03.113 Cellulitis of right upper limb (principal)
CPT/HCPCS: 99283-25